=== PATIENT | female | born 1985 | race Caucasian/White ===

== ENCOUNTER → 2016-12-13 | Outpatient (CLI) | payer OTHER ==
--- NOTE | 2016-12-13 15:39 | NM ---
EXAMINATION TYPE: NM hepatobiliary w EF DATE OF EXAM: 12/13/2016 3:14 PM COMPARISON: NONE HISTORY: Epigastric pain TECHNIQUE: After the intravenous administration of 5.42 mCi Tc 99m Mebrofenin hepatobiliary scintigra phy is performed. Immediate images post injection. FINDINGS: There is satisfactory initial accumulation of tracer by the liver. The gallbladder is visualized wit hin 8 minutes. The small bowel activity is noted within 26 minutes. At one hour 8 ounces of oral en sure plus is given to mimic CCK and gallbladder ejection fraction is calculated at 71 %, in the buffy l range. Therefore there is no scintigraphic evidence of cystic or common bile duct obstruction to s uggest acute cholecystitis or gallbladder dyskinesia. IMPRESSION: Exam is within normal limits.
== END | disposition home or self-care (01) ==
LOC: RADNMMAIN 12:47
PROVIDERS: ATTEND Surgery
DX: R10.13 Epigastric pain (principal)
CPT/HCPCS: 78226; A9537

== ENCOUNTER 2017-04-08 20:00 | Emergency (ER) | payer OTHER ==
[2017-04-08 20:36] VITALS: BP 125/76; PULSE 90; RESP 20; TEMP 99.6
--- NOTE | 2017-04-08 21:00 | ED ---
Eye Problem HPI - General Chief complaint: Eye Problems Stated complaint: IHS/Eye Problem Time Seen by Provider: 04/08/17 20:43 Source: patient Mode of arrival: ambulatory Limitations: no limitations - History of Present Illness Initial comments: 31-year-old female presenting for left eye irritation. Patient states that she had a small amount of cleaning solution spray back into her left eye while she was working today. 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 She states she felt fine after this incident while at work. However when she got home after work she removed her contacts and then began to develop left eye irritation. She states she went to [facility] who evaluated her and placed numbing eyedrops in her eyes and performed fluorescein staining exam. She states they told her that she had no corneal abrasions or foreign bodies. However the recommended she go to the ED for pH testing. She denies any visual changes. She denies any pain with eye movement. She states her pain is improved after the numbing drops were applied. She denies any other chemical exposure. She denies any other complaints at this time. - Related Data Home Medications Medication Instructions Recorded Confirmed No Known Home Medications [No 04/08/17 04/08/17 Known Home Medications] Allergies Allergy/AdvReac Type Severity Reaction Status Date / Time No Known Allergies Allergy Verified 04/08/17 20:36 Review of Systems ROS Statement: Those systems with pertinent positive or pertinent negative responses have been documented in the HPI. ROS Other: All systems not noted in ROS Statement are negative. Past Medical History Past Medical History: No Reported History History of Any Multi-Drug Resistant Organisms: None Reported Past Surgical History: Section Past Anesthesia/Blood Transfusion Reactions: No Reported Reaction Past Psychological History: No Psychological Hx Reported Smoking Status: Never smoker Past Alcohol Use History: None Reported Past Drug Use History: None Reported - Past Family History Mother Family Medical History: No Reported History General Exam - General Exam Comments Initial Comments: General: Awake and Alert. No acute distress. Does not appear acutely ill. Eyes: SARY, EOM intact. No nystagmus. No scleral icterus. Left conjunctival injection. No discharge. No corneal clouding. HENT: Atraumatic, normocephalic. Mucous membranes moist. Trachea midline. Neck: The neck is supple, there is no tenderness or JVD. Cardiovascular: Regular rate and rhythm. No murmur, rub, or gallop is appreciated. Distal pulses intact. Respiratory: Lungs are clear to auscultation bilaterally. No wheezes, rales, rhonchi. No respiratory distress. Gastrointestinal: Soft, Nontender. No rebound or guarding. Non-distended. No masses or organomegaly noted. No CVA tenderness. Musculoskeletal: No tenderness. Normal ROM. No gross deformity. No strength deficits. Neurological: A&Ox3. CN II-XII grossly intact, There are no obvious motor or sensory deficits. Coordination appears grossly intact. Speech is normal. Skin: Skin is warm and dry and no rashes or lesions are noted. Psychiatric: Cooperative, appropriate mood & affect, normal judgment. Limitations: no limitations Course Vital Signs 04/08/17 20:33 Temperature 99.6 F Pulse Rate 90 Respiratory 20 Rate Blood Pressure 125/76 O2 Sat by Pulse 100 Oximetry Medical Decision Making - Medical Decision Making 31-year-old female presenting after chemical irritation of her left eye. Patient had cleaning solution backsplash in her eye earlier today. She states that she was fine during work but when she came home and took out her contacts she developed irritation of his eye. She denies any visual changes. Visual acuity testing intact bilaterally. She went [facility] who evaluated her and did a fluorescein staining after numbing eyedrops and stated they saw no corneal abrasions or foreign bodies. She was directed to come to the ER for pH test. I discussion with the patient given her small exposure and no worsening of symptoms and no visual changes she does not appear to require irrigations or pH testing at this time. Discussed no contact usage for several days until symptoms resolve. Discussed ophthalmology follow-up in the next few days and referral provided. Discussed concerning signs/symptoms for immediate return to the ED for emergent ophthalmology evaluation. Patient is agreeable plan and discharge home. Work note provided as patient wishes to go back to work stating she may return with no restrictions. Recommend she wear eye protection when handling chemicals. Disposition Clinical Impression: Exposure to chemical irritant, Irritation of left eye Disposition: HOME SELF-CARE Condition: Stable Instructions: [facility] [place] (ED) Additional Instructions: You may use lubricating eye drops for symptom relief. Please wear eye protection when working with chemicals. Please follow up with Ophthalmology in the next few days. Referrals: None,Stated [Primary Care Provider] - 1-2 days Everardo Tena MD [STAFF PHYSICIAN] - 1-2 days Time of Disposition: 21:00
== END 2017-04-08 21:07 | disposition home or self-care (01) ==
LOC: EC 20:00
DX: H57.9 Unspecified disorder of eye and adnexa (principal); Z77.098 Contact with and (suspected) exposure to other hazardous, chiefly nonmedicinal, chemicals
CPT/HCPCS: 99283

== ENCOUNTER 2017-08-20 19:22 | Emergency (ER) | payer OTHER ==
[2017-08-20] MEDS ORDERED: ONDANSETRON 4 MG/2 ML VIAL IVP STA (19:40)
[2017-08-20] MEDS ORDERED: SODIUM CHLORIDE 0.9% 1,000 ML IV STA (19:40)
[2017-08-20 20:07] LABS: Basophils # (A) 0.1 k/uL (0-0.2); Basophils % (A) 1 %; CH 31.1; CHCM 34.6; Eosinophils # (A) 0.2 k/uL (0-0.7); Eosinophils % (A) 2 %; HCT 38.9 % (34.0-46.0); HDW 2.29; HGB 13.1 gm/dL (11.4-16.0); Luc # (Auto) 0.16; Luc % (Auto) 2; Lymphocytes # (A) 2.7 k/uL (1.0-4.8); Lymphocytes % (A) 30 %; MCH 30.4 pg (25.0-35.0); MCHC 33.7 g/dL (31.0-37.0); MCV 90.3 fL (80.0-100.0); Mean Platelet Volume 7.9; Monocytes # (A) 0.4 k/uL (0-1.0); Monocytes % (A) 5 %; Neutrophils # (A) 5.5 k/uL (1.3-7.7); Neutrophils % (A) 61 %; RBC 4.31 m/uL (3.80-5.40); RDW 13.7 % (11.5-15.5); WBC 9.1 k/uL (3.8-10.6); WBC (Perox) 9.75
[2017-08-20 20:12] LABS: Appearance,Urine Clear (Clear); Bilirubin,Urine Negative (Negative); Glucose,Urine (UA) Negative (Negative); Ketones,Urine Negative (Negative); Leukocyte Esterase,Urine Negative (Negative); Nitrite,Urine Negative (Negative); Protein,Urine Negative (Negative); Specific Gravity,Urine 1.003 (1.001-1.035); UA Billing (MACRO vs. MICRO) CHEM; Urobilinogen,Urine <2.0 mg/dL (<2.0)
[2017-08-20] MEDS ORDERED: RX INFO: IV CONTRAST WAS GIVEN 1 EACH MISC MISCELLANE PRN (20:14)
[2017-08-20 20:21] LABS: ALT 27 U/L (9-52); AST 17 U/L (14-36); Alkaline Phosphatase 42 U/L (38-126); Amylase <30 U/L (30-110); Anion Gap 10 mmol/L; Blood Urea Nitrogen 10 mg/dL (7-17); Calcium 9.3 mg/dL (8.4-10.2); Carbon Dioxide 26 mmol/L (22-30); Chloride 103 mmol/L (98-107); Glucose 96 mg/dL (74-99); Non-African American GFR(MDRD) >60 (>60 ml/min/1.73 sqM); Potassium 3.4 mmol/L (3.5-5.1); Sodium 139 mmol/L (137-145); Total Bilirubin 0.4 mg/dL (0.2-1.3)
[2017-08-20] MEDS ORDERED: KETOROLAC 30 MG/ML 1 ML VIAL IVP STA (20:56)
--- NOTE | 2017-08-20 20:59 | ED ---
Abdominal Pain HPI - General Chief Complaint: Abdominal Pain Stated Complaint: Abd Pain Time Seen by Provider: 08/20/17 19:31 Source: patient, RN notes reviewed Mode of arrival: ambulatory Limitations: no limitations - History of Present Illness Initial Comments: This a 32-year-old female presents emergency Department chief complaint of right -sided abdominal pain. Patient states that the pain has A 5 his last 24 hours. She states that she has had on and off pain for last year once was told that it was her gallbladder though she had a normal HIDA scan centimeters surgeon. Patient admits to some nausea denies any diarrhea or constipation. She states she has had some urinary frequency but no dysuria and no hematuria. Patient had prior section and has no history of kidney stone, GI disorders. Patient states nothing is making her pain feel better or worse at this time. - Related Data Previous Rx's Medication Instructions Recorded Acetaminophen-Codeine 300-30mg 1 tab PO Q4H PRN #20 tablet 08/20/17 [Tylenol #3] Ibuprofen [Motrin] 600 mg PO Q8HR PRN #30 tab 08/20/17 Ondansetron Odt [Zofran Odt] 4 mg PO Q8HR PRN #10 tab 08/20/17 Allergies Allergy/AdvReac Type Severity Reaction Status Date / Time No Known Allergies Allergy Verified 08/20/17 19:59 Review of Systems ROS Statement: Those systems with pertinent positive or pertinent negative responses have been documented in the HPI. ROS Other: All systems not noted in ROS Statement are negative. Past Medical History Past Medical History: No Reported History History of Any Multi-Drug Resistant Organisms: None Reported Past Surgical History: Section Past Anesthesia/Blood Transfusion Reactions: No Reported Reaction Past Psychological History: No Psychological Hx Reported Smoking Status: Current every day smoker Past Alcohol Use History: Rare Past Drug Use History: None Reported - Past Family History Mother Family Medical History: No Reported History General Exam Limitations: no limitations General appearance: alert, in no apparent distress Respiratory exam: Present: normal lung sounds bilaterally. Absent: respiratory distress, wheezes, rales, rhonchi, stridor Cardiovascular Exam: Present: regular rate, normal rhythm, normal heart sounds. Absent: systolic murmur, diastolic murmur, rubs, gallop, clicks GI/Abdominal exam: Present: soft, tenderness (Moderate right-sided abdominal tenderness), normal bowel sounds. Absent: distended, guarding, rebound, rigid Back exam: Absent: CVA tenderness (R), CVA tenderness (L) Skin exam: Present: warm, dry, intact, normal color. Absent: rash Course Vital Signs 08/20/17 08/20/17 19:28 21:05 Temperature 97.1 F L Pulse Rate 96 65 Respiratory 18 20 Rate Blood Pressure 127/78 113/76 O2 Sat by Pulse 100 100 Oximetry Medical Decision Making - Medical Decision Making 32-year-old female presented emergency department for right-sided abdominal pain. Patient's laboratory, CT ultrasound does not show any acute abnormality. Patient states she does feel improved at this time. I did advise the patient that she needs follow-up with her PCP and GI physician. Return parameters were discussed. - Lab Data Result diagrams: 08/20/17 15:05 08/20/17 15:05 Lab Results 08/20/17 08/20/17 08/20/17 Range/Units 15:05 15:05 15:05 WBC 9.1 (3.8-10.6) k/uL RBC 4.31 (3.80-5.40) m/uL Hgb 13.1 (11.4-16.0) gm/dL Hct 38.9 (34.0-46.0) % MCV 90.3 (80.0-100.0) fL MCH 30.4 (25.0-35.0) pg MCHC 33.7 (31.0-37.0) g/dL RDW 13.7 (11.5-15.5) % Plt Count 281 (150-450) k/uL Neutrophils % 61 % Lymphocytes % 30 % Monocytes % 5 % Eosinophils % 2 % Basophils % 1 % Neutrophils # 5.5 (1.3-7.7) k/uL Lymphocytes # 2.7 (1.0-4.8) k/uL Monocytes # 0.4 (0-1.0) k/uL Eosinophils # 0.2 (0-0.7) k/uL Basophils # 0.1 (0-0.2) k/uL Sodium 139 (137-145) mmol/L Potassium 3.4 L (3.5-5.1) mmol/L Chloride 103 (98-107) mmol/L Carbon Dioxide 26 (22-30) mmol/L Anion Gap 10 mmol/L BUN 10 (7-17) mg/dL Creatinine 0.62 (0.52-1.04) mg/dL Est GFR (MDRD) Af Amer >60 (>60 ml/min/1.73 sqM) Est GFR (MDRD) Non-Af >60 (>60 ml/min/1.73 sqM) Glucose 96 (74-99) mg/dL Calcium 9.3 (8.4-10.2) mg/dL Total Bilirubin 0.4 (0.2-1.3) mg/dL AST 17 (14-36) U/L ALT 27 (9-52) U/L Alkaline Phosphatase 42 (38-126) U/L Total Protein 7.0 (6.3-8.2) g/dL Albumin 4.4 (3.5-5.0) g/dL Amylase <30 L (30-110) U/L Lipase 45 (23-300) U/L Urine Color Urine Appearance (Clear) Urine pH (5.0-8.0) Ur Specific [place] (1.001-1.035) Urine Protein (Negative) Urine Glucose (UA) (Negative) Urine Ketones (Negative) Urine Blood (Negative) Urine Nitrite (Negative) Urine Bilirubin (Negative) Urine Urobilinogen (<2.0) mg/dL Ur Leukocyte Esterase (Negative) Urine HCG, Qual Not Detected (Not Detectd) 08/20/17 Range/Units 15:05 WBC (3.8-10.6) k/uL RBC (3.80-5.40) m/uL Hgb (11.4-16.0) gm/dL Hct (34.0-46.0) % MCV (80.0-100.0) fL MCH (25.0-35.0) pg MCHC (31.0-37.0) g/dL RDW (11.5-15.5) % Plt Count (150-450) k/uL Neutrophils % % Lymphocytes % % Monocytes % % Eosinophils % % Basophils % % Neutrophils # (1.3-7.7) k/uL Lymphocytes # (1.0-4.8) k/uL Monocytes # (0-1.0) k/uL Eosinophils # (0-0.7) k/uL Basophils # (0-0.2) k/uL Sodium (137-145) mmol/L Potassium (3.5-5.1) mmol/L Chloride (98-107) mmol/L Carbon Dioxide (22-30) mmol/L Anion Gap mmol/L BUN (7-17) mg/dL Creatinine (0.52-1.04) mg/dL Est GFR (MDRD) Af Amer (>60 ml/min/1.73 sqM) Est GFR (MDRD) Non-Af (>60 ml/min/1.73 sqM) Glucose (74-99) mg/dL Calcium (8.4-10.2) mg/dL Total Bilirubin (0.2-1.3) mg/dL AST (14-36) U/L ALT (9-52) U/L Alkaline Phosphatase (38-126) U/L Total Protein (6.3-8.2) g/dL Albumin (3.5-5.0) g/dL Amylase (30-110) U/L Lipase (23-300) U/L Urine Color Light Yellow Urine Appearance Clear (Clear) Urine pH 6.0 (5.0-8.0) Ur Specific [place] 1.003 (1.001-1.035) Urine Protein Negative (Negative) Urine Glucose (UA) Negative (Negative) Urine Ketones Negative (Negative) Urine Blood Negative (Negative) Urine Nitrite Negative (Negative) Urine Bilirubin Negative (Negative) Urine Urobilinogen <2.0 (<2.0) mg/dL Ur Leukocyte Esterase Negative (Negative) Urine HCG, Qual (Not Detectd) Disposition Clinical Impression: Abdominal pain Disposition: HOME SELF-CARE Condition: Stable Instructions: Abdominal Pain (ED) Additional Instructions: Please return to the Emergency Department if symptoms worsen or any other concerns. Prescriptions: Acetaminophen-Codeine 300-30mg [Tylenol #3] 1 tab PO Q4H PRN #20 tablet PRN Reason: pain Ibuprofen [Motrin] 600 mg PO Q8HR PRN #30 tab PRN Reason: Pain Ondansetron Odt [Zofran Odt] 4 mg PO Q8HR PRN #10 tab PRN Reason: Nausea Referrals: None,Stated [Primary Care Provider] - 1-2 days Celsa Walter MD [STAFF PHYSICIAN] - 1-2 days Time of Disposition: 23:17
--- NOTE | 2017-08-20 21:03 | CT ---
EXAMINATION TYPE: CT abdomen pelvis w con DATE OF EXAM: 08/20/2017 COMPARISON: NONE HISTORY: Right sided abdominal pain x 1 year. Worse last [address] DLP: 366.20 mGycm CONTRAST: CT scan of the abdomen and pelvis is performed without Oral Contrast and with IV Contrast, patient in jected with 100 mL of Omnipaque 300. FINDINGS: LUNG BASES-: No visible nodule. No infiltrate. LIVER/GB: No calcified gallstones. No space occupying hepatic lesion. Biliary tree is of normal ca liber. PANCREAS: No inflammation. No distinct mass. SPLEEN: No splenic enlargement. No lesion seen. ADRENALS: No nodule. No thickening. KIDNEYS/BLADDER: No hydronephrosis. No nephrolithiasis. No disctinct renal mass. Urinary bladder g rossly unremarkable. BOWEL: Normal appendix. Normal bowel caliber. No inflammation. GENITAL ORGANS: No gross abnormality. LYMPH NODES: No greater than 1cm abdominal or pelvic lymph nodes are appreciated. AORTA: No significant abnormality. OSSEOUS STRUCTURES: No significant abnormality is seen. OTHER: No significant additional abnormality is seen. IMPRESSION: 1. No acute intra-abdominal process identified.
--- NOTE | 2017-08-20 23:11 | US ---
EXAM: US Pelvis, Transvaginal CLINICAL HISTORY: Reason: Pain TECHNIQUE: Real-time transvaginal pelvic ultrasound (complete) with image documentation. Transvaginal imaging was used for better evaluation of the endometrium and adnexa. COMPARISON: No relevant prior studies available. FINDINGS: Uterus/cervix: Uterus measures 6.3 x 4.3 x 5.2 cm Endometrial thickness is within normal limits, 9 mm. Right ovary: Right ovary not visualized. No adnexal mass or cyst. Left ovary: Left Ovary measures 3.0 x 2.0 x 2.3 cm intraovarian flow is present. No adnexal mass or cyst. Free fluid: No free fluid. IMPRESSION: 1. Uterus and endometrium are normal for age. 2. Left ovary is normal. 3. Nonvisualization of the right ovary. No adnexal mass or cyst. MTDD
[2017-08-20 23:37] VITALS: BP 102/64; PULSE 64; RESP 18; TEMP 97.2
== END 2017-08-20 23:37 | disposition home or self-care (01) ==
LOC: EC 19:22
DX: R10.9 Unspecified abdominal pain (principal); R11.0 Nausea; R35.0 Frequency of micturition; F17.200 Nicotine dependence, unspecified, uncomplicated; Z98.890 Other specified postprocedural states; Z53.9 Procedure and treatment not carried out, unspecified reason
CPT/HCPCS: 96361 ×4; 96374 ×2; 96375 ×2; 99284 ×2; 36415; 80053; 82150; 83690; 85025; 81003; 81025; 93976; 76830; 74177; J2405; J1885; Q9967; 76856

== ENCOUNTER → 2017-10-17 | Outpatient (CLI) | payer OTHER ==
--- NOTE | 2017-10-17 11:08 | FL ---
EXAMINATION TYPE: FL UGI w small bowel DATE OF EXAM: 10/17/2017 COMPARISON: NONE HISTORY: Abdomen pain diarrhea irritable bowel symptoms TECHNIQUE: A double air contrast UGI study is performed with small bowel follow through. 1 minute 39 seconds of fluoroscopy time was provided. 29 images are obtained. FINDINGS: [employer] film: Fecal debris is within the colon on the initial live in caregiver film. [employer] film is othe rwise noncontributory Upper GI: Double air-contrast technique is utilized to evaluate the upper gastrointestinal tract. The esophagus dilates to normal caliber has normal contour to the gastroesophageal junction. Gastroes ophageal junction opens to normal caliber. No intraluminal or extramural defects are evident. No refl ux was evident during the exam. There is complete stripping of the esophageal bolus in the horizontal drinking position. Fundus body and antrum the stomach are well visualized. No intraluminal or extramural defects are dieog dent. There is some hesitancy of contrast passing through the stomach into the duodenum. Duodenal fold hype rtrophy is evident. Duodenum is in the normal position. Small bowel follow-through: Following additional oral administration of contrast head radiograph was obtained. There is rapid transit from the stomach to the colon in approximately 20 minutes. Real-time fluoroscopy was performed. Loops of bowel appear freely mobile. There was tenderness over the mid pe lvic region with compression. Some linear stranding is within the terminal ileum. The cecum appears decompressed with more normal appearance of the distal ascending colon. Consider ad ditional evaluation of the cecum with colonoscopy. Inflammatory change and spasm are more likely than neoplasm. IMPRESSION: 1. Inflammatory changes are likely present at the duodenum and terminal ileum and possibly within the cecum. Consider Crohn's disease within the differential. Differential diagnosis could include acute duodenitis and ileitis. 2. Spasm at the cecum. Inflammatory changes should be considered. Neoplasm while unlikely, should be excluded.
== END | disposition home or self-care (01) ==
LOC: RADFLMAIN 08:54
PROVIDERS: ATTEND Internal Medicine Gastroenterology
DX: K58.9 Irritable bowel syndrome, unspecified (principal)
CPT/HCPCS: 74245

== ENCOUNTER → 2020-09-02 | Outpatient (CLI) | payer OTHER ==
--- NOTE | 2020-09-02 08:23 | US ---
EXAMINATION TYPE: US abdomen complete DATE OF EXAM: 09/02/2020 COMPARISON: CLINICAL HISTORY: R10.11 RUQ ABDOMINAL PAIN. RUQ pain. NPO. EXAM MEASUREMENTS: Liver Length: 16.5 cm Gallbladder Wall: 0.2 cm CBD: 0.4 cm Spleen: 11.4 cm Right Kidney: 9.7 x 4.1 x 3.3 cm Left Kidney: 10.4 x 4.5 x 5.4 cm Pancreas: wnl Liver: wnl Gallbladder: wnl Evidence for sonographic Thomas's sign: neg CBD: wnl Spleen: wnl Right Kidney: No hydronephrosis or masses seen Left Kidney: No hydronephrosis or masses seen Upper IVC: wnl Abd Aorta: No AAA visualized The liver is homogenous. The intrahepatic portion of the IVC and proximal abdominal aorta are within normal limits. There is no evidence of cholelithiasis. Common bile duct is unremarkable. The visu alized portions of the pancreas are homogenous. The spleen is unremarkable. Kidneys are symmetric a nd free of hydronephrosis. No renal lesions are seen. IMPRESSION: No distinct abnormality seen.
== END | disposition home or self-care (01) ==
LOC: RADUSWWP 07:26
PROVIDERS: ATTEND Internal Medicine
DX: R10.11 Right upper quadrant pain (principal)
CPT/HCPCS: 76700

== ENCOUNTER → 2022-08-27 | Outpatient (CLI) | payer BC, OTHER ==
--- NOTE | 2022-08-27 10:23 | MM ---
Reason for Exam: Clinical finding. Patient History: Menarche at age 15. First Full-Term at age 21. Premenopausal. Hormonal Contraceptives, from age 18 until age 27. Last menstrual period: 08/13/2022 Risk Values: Glenis 5 year model risk: 0.2%. NCI Lifetime model risk: 7.5%. Tissue Density: The breast tissue is heterogeneously dense. This may lower the sensitivity of mammography. Findings: Analyzed By CAD. Palpable marker placed along the 11:00 and axillary position of the right breast. Superior asymmetric density right MLO view does not persist on spot 3-D images. Otherwise, no discrete abnormality is seen. Overall Assessment: Incomplete: need additional imaging evaluation, BI-RAD 0 Management: Diagnostic Breast Ultrasound of the right breast. Electronically signed and approved by: Michael Arenas M.D. Radiologist
--- NOTE | 2022-08-27 10:33 | USB ---
Reason for Exam: Clinical finding. Patient History: Menarche at age 15. First Full-Term at age 21. Premenopausal. Hormonal Contraceptives, from age 18 until age 27. Risk Values: Glenis 5 year model risk: 0.2%. NCI Lifetime model risk: 7.5%. Technique: Method: Targeted. Findings: The upper outer quadrant of the right breast, the axilla of the right breast and the retroareolar of the right breast were scanned. Targeted ultrasound upper outer quadrant 9:00 to 12:00 including the subareolar region and axilla. Particular attention to the palpable 12:00 and axillary regions indicated by the patient. Scattered dense tissues are present. No solid or cystic lesion. No axillary lymphadenopathy.. Overall Assessment: Negative, BI-RAD 1 Management: Screening Mammogram of both breasts at age 42. 1. Patient should continue monthly self breast exams. 2. Further clinical management of any suspicious palpable areas. If any persistent or enlarging palpable area is encountered, the patient can be rescanned. Electronically signed and approved by: Michael Arenas M.D. Radiologist
== END | disposition home or self-care (01) ==
LOC: RADMAMWWP 08:39
PROVIDERS: ATTEND Internal Medicine
DX: N63.10 Unspecified lump in the right breast, unspecified quadrant (principal); R92.8 Other abnormal and inconclusive findings on diagnostic imaging of breast
CPT/HCPCS: 77062; 77066

== ENCOUNTER 2022-10-26 14:00 | Inpatient (IN) | payer BC, OTHER ==
[2022-10-26] MEDS ORDERED: LORazepam 2 MG/ML INJ IV STA ×2 (14:06→15:12)
[2022-10-26] MEDS ORDERED: SODIUM CHLORIDE 0.9% 1,000 ML IV ONE (14:06)
--- NOTE | 2022-10-26 14:12 | ED ---
General Adult HPI - General Stated complaint: AMS Time Seen by Provider: 10/26/22 14:05 Source: patient, EMS Mode of arrival: EMS Limitations: altered mental status - History of Present Illness Initial comments: Patient is a pleasant 37-year-old female presenting to the emergency department with concern with change in mental status. Patient arrives by EMS. Patient reportedly was at work and became weak and then less responsive. Patient is also had some reported tremors. EMS reports that patient is distractible and able to answer somewhat yes and no with head movements. Patient also stops tremoring when distracted. Patient presents with similar presentation upon arri jane to the emergency department. Patient is not verbal. Patient does admit to being under stress recently. Patient denies history of similar symptoms previously. - Related Data Previous Rx's Medication Instructions Recorded Acetaminophen-Codeine 300-30mg 1 tab PO Q4H PRN #20 tablet 08/20/17 [Tylenol #3] Ibuprofen [Motrin] 600 mg PO Q8HR PRN #30 tab 08/20/17 Ondansetron Odt [Zofran Odt] 4 mg PO Q8HR PRN #10 tab 08/20/17 Allergies Allergy/AdvReac Type Severity Reaction Status Date / Time No Known Allergies Allergy Verified 08/20/17 19:59 Review of Systems ROS Statement: Those systems with pertinent positive or pertinent negative responses have been documented in the HPI. ROS Other: All systems not noted in ROS Statement are negative. Limitations: ROS unobtainable due to patients medical condition Past Medical History Past Medical History: No Reported History History of Any Multi-Drug Resistant Organisms: None Reported Past Surgical History: Section Past Anesthesia/Blood Transfusion Reactions: No Reported Reaction Past Psychological History: No Psychological Hx Reported Past Alcohol Use History: Rare Past Drug Use History: None Reported - Past Family History Mother Family Medical History: No Reported History General Exam Limitations: altered mental status General appearance: alert, other (Patient does have mild tremors. Patient is distractible unable to open her eyes and follow simple commands at times) Head exam: Present: atraumatic, normocephalic Eye exam: Present: normal appearance, PERRL, EOMI ENT exam: Present: normal oropharynx Neck exam: Present: normal inspection. Absent: tenderness, meningismus Respiratory exam: Present: normal lung sounds bilaterally Cardiovascular Exam: Present: regular rate, normal rhythm Expanded Peripheral pulses: 2+: Radial (R), Radial (L), Dorsalis Pedis (R), Dorsalis Pedis (L) GI/Abdominal exam: Present: soft. Absent: tenderness Extremities exam: Present: normal inspection Neurological exam: Present: other (Resting tremor that patient is able to overcome and distracted. Patient is nonverbal but for the most part will answer yes and no with shaking her head. Patient follows some commands. Limited exam. Patient does move all extremities. No flaccid paralysis) Psychiatric exam: Present: other (Nonverbal. Patient admits to having increased stress) Skin exam: Present: normal color Course Vital Signs 10/26/22 10/26/22 14:06 15:31 Temperature 98.8 F Pulse Rate 105 H 98 Respiratory 18 18 Rate Blood Pressure 131/91 128/74 O2 Sat by Pulse 99 99 Oximetry EKG Findings - EKG Results: EKG: interpreted by ERMD (AL 96.), sinus rhythm, normal axis, normal QRS, normal ST/T EKG shows: tachycardia Medical Decision Making - Medical Decision Making Patient reevaluated and is somewhat improved. Patient no longer having tremors. Patient will answer her name however further speech is still limited. There is concern for anxiety reaction however patient has not returned to baseline. Patient will need further observation and if does not further improved may need further testing or evaluation or neurology evaluation. Case was discussed with Dr. Trammell, who will admit covering for hospital call. - Lab Data Result diagrams: 10/26/22 14:13 10/26/22 14:13 Lab Results 10/26/22 10/26/22 10/26/22 Range/Units 14:13 14:13 14:13 WBC 9.5 (3.8-10.6) k/uL RBC 4.31 (3.80-5.40) m/uL Hgb 12.8 (11.4-16.0) gm/dL Hct 37.4 (34.0-46.0) % MCV 86.8 (80.0-100.0) fL MCH 29.6 (25.0-35.0) pg MCHC 34.1 (31.0-37.0) g/dL RDW 12.7 (11.5-15.5) % Plt Count 373 (150-450) k/uL MPV 7.4 Neutrophils % 58 % Lymphocytes % 34 % Monocytes % 6 % Eosinophils % 1 % Basophils % 1 % Neutrophils # 5.5 (1.3-7.7) k/uL Lymphocytes # 3.2 (1.0-4.8) k/uL Monocytes # 0.5 (0-1.0) k/uL Eosinophils # 0.1 (0-0.7) k/uL Basophils # 0.1 (0-0.2) k/uL PT 10.4 (9.0-12.0) sec INR 1.0 (<1.2) APTT 22.3 (22.0-30.0) sec Sodium 136 L (137-145) mmol/L Potassium 3.1 L (3.5-5.1) mmol/L Chloride 103 (98-107) mmol/L Carbon Dioxide 23 (22-30) mmol/L Anion Gap 10 mmol/L BUN 10 (7-17) mg/dL Creatinine 0.58 (0.52-1.04) mg/dL Est GFR (CKD-EPI)AfAm >90 (>60 ml/min/1.73 sqM) Est GFR (CKD-EPI)NonAf >90 (>60 ml/min/1.73 sqM) Glucose 108 H (74-99) mg/dL Calcium 8.4 (8.4-10.2) mg/dL Magnesium 1.7 (1.6-2.3) mg/dL Total Bilirubin 0.4 (0.2-1.3) mg/dL AST 18 (14-36) U/L ALT 15 (4-34) U/L Alkaline Phosphatase 69 (38-126) U/L Troponin I (0.000-0.034) ng/mL Total Protein 6.4 (6.3-8.2) g/dL Albumin 4.3 (3.5-5.0) g/dL Serum Alcohol <10 mg/dL 10/26/22 Range/Units 14:13 WBC (3.8-10.6) k/uL RBC (3.80-5.40) m/uL Hgb (11.4-16.0) gm/dL Hct (34.0-46.0) % MCV (80.0-100.0) fL MCH (25.0-35.0) pg MCHC (31.0-37.0) g/dL RDW (11.5-15.5) % Plt Count (150-450) k/uL MPV Neutrophils % % Lymphocytes % % Monocytes % % Eosinophils % % Basophils % % Neutrophils # (1.3-7.7) k/uL Lymphocytes # (1.0-4.8) k/uL Monocytes # (0-1.0) k/uL Eosinophils # (0-0.7) k/uL Basophils # (0-0.2) k/uL PT (9.0-12.0) sec INR (<1.2) APTT (22.0-30.0) sec Sodium (137-145) mmol/L Potassium (3.5-5.1) mmol/L Chloride (98-107) mmol/L Carbon Dioxide (22-30) mmol/L Anion Gap mmol/L BUN (7-17) mg/dL Creatinine (0.52-1.04) mg/dL Est GFR (CKD-EPI)AfAm (>60 ml/min/1.73 sqM) Est GFR (CKD-EPI)NonAf (>60 ml/min/1.73 sqM) Glucose (74-99) mg/dL Calcium (8.4-10.2) mg/dL Magnesium (1.6-2.3) mg/dL Total Bilirubin (0.2-1.3) mg/dL AST (14-36) U/L ALT (4-34) U/L Alkaline Phosphatase (38-126) U/L Troponin I <0.012 (0.000-0.034) ng/mL Total Protein (6.3-8.2) g/dL Albumin (3.5-5.0) g/dL Serum Alcohol mg/dL - Radiology Data Radiology results: report reviewed (Computed tomography scan of the brain reveals no acute process) Interpreted by me: Chest x-ray shows no acute process. Disposition Clinical Impression: Altered mental status Disposition: ADMITTED IP TO THIS HOSP Is patient prescribed a controlled substance at d/c from ED?: No Referrals: Carol Brown [Primary Care Provider] - 1-2 days Time of Disposition: 16:19
[2022-10-26 14:24] LABS: Basophils # (A) 0.1 k/uL (0-0.2); Basophils % (A) 1 %; Eosinophils # (A) 0.1 k/uL (0-0.7); Eosinophils % (A) 1 %; HCT 37.4 % (34.0-46.0); HGB 12.8 gm/dL (11.4-16.0); Lymphocytes # (A) 3.2 k/uL (1.0-4.8); Lymphocytes % (A) 34 %; MCH 29.6 pg (25.0-35.0); MCHC 34.1 g/dL (31.0-37.0); MCV 86.8 fL (80.0-100.0); Mean Platelet Volume 7.4; Monocytes # (A) 0.5 k/uL (0-1.0); Monocytes % (A) 6 %; Neutrophils # (A) 5.5 k/uL (1.3-7.7); Neutrophils % (A) 58 %; Platelet Count 373 k/uL (150-450); RBC 4.31 m/uL (3.80-5.40); RDW 12.7 % (11.5-15.5); WBC 9.5 k/uL (3.8-10.6)
[2022-10-26 14:34] LABS: ALT 15 U/L (4-34); AST 18 U/L (14-36); African American GFR (CKD) >90 (>60 ml/min/1.73 sqM); Albumin 4.3 g/dL (3.5-5.0); Alcohol <10 mg/dL; Alkaline Phosphatase 69 U/L (38-126); Anion Gap 10 mmol/L; Blood Urea Nitrogen 10 mg/dL (7-17); Calcium 8.4 mg/dL (8.4-10.2); Carbon Dioxide 23 mmol/L (22-30); Chloride 103 mmol/L (98-107); Glucose 108 mg/dL (74-99); Magnesium 1.7 mg/dL (1.6-2.3); Non-African American GFR(CKD) >90 (>60 ml/min/1.73 sqM); Potassium 3.1 mmol/L (3.5-5.1); Sodium 136 mmol/L (137-145); Total Bilirubin 0.4 mg/dL (0.2-1.3); Total Protein 6.4 g/dL (6.3-8.2)
[2022-10-26 14:37] LABS: Partial Thromboplastin Time 22.3 sec (22.0-30.0); Prothrombin Time 10.4 sec (9.0-12.0)
--- NOTE | 2022-10-26 15:03 | XR ---
EXAMINATION TYPE: XR chest 2V DATE OF EXAM: 10/26/2022 2:53 PM COMPARISON: None TECHNIQUE: XR chest 2V Frontal and lateral views of the chest. CLINICAL INDICATION:Female, 37 years old with history of altered mental status; FINDINGS: Lungs/Pleura: Low lung volumes are present. There is no evidence of pleural effusion, focal consolida tion, or pneumothorax. Pulmonary vascularity: Unremarkable. Heart/mediastinum: Cardiomediastinal silhouette is unremarkable. Musculoskeletal: No acute osseous pathology. IMPRESSION: No acute cardiopulmonary disease/process.
--- NOTE | 2022-10-26 15:04 | CT ---
EXAMINATION TYPE: CT brain wo con CT DLP: 1092.4 mGycm, Automated exposure control for dose reduction was used. DATE OF EXAM: 10/26/2022 2:49 PM COMPARISON: 05/24/2011. CLINICAL INDICATION:Female, 37 years old with history of Altered mental status, Seizure. TECHNIQUE: Brain: Axial CT images of the brain were obtained with coronal and sagittal reformats created and rev iewed. Contrast used: None. Oral contrast used: None. FINDINGS: Brain: Extra-axial spaces: No abnormal extra-axial fluid collections. Ventricular system: Within normal limits Cerebral parenchyma: No acute intraparenchymal hemorrhage or mass effect. The agustin-white junction is well differentiated. Cerebellum: Unremarkable. Mass effect: No evidence of midline shift. Intracranial vasculature: unremarkable Soft tissues: Normal. Calvarium/osseous structures: No depressed skull fracture. Paranasal sinuses and mastoid air cells: Mild scattered paranasal sinus disease. Visualized orbits: Orbital contents are intact. IMPRESSION: No acute intracranial process.
[2022-10-26] MEDS ORDERED: NALOXONE 0.4 MG/ML 1 ML VIAL IV PRN (16:20)
[2022-10-26] MEDS ORDERED: POTASSIUM BICARBONATE/CIT AC 20 MEQ TABLET.EFF PO ONE (16:21)
--- NOTE | 2022-10-26 17:39 | P.HPIM ---
History of Present Illness H&P Date: 10/26/22 Patient is a 37-year-old female with no known past medical history who presented to the ER via EMS from work. Per EMS patient had some difficulty grabbing her pen and then had a syncopal episode. After waking she was unable to speak. In the ER she underwent an extensive evaluation. On arrival her heart rate was 105 with the remainder of her vital signs were within normal limits. Initial laboratory analysis was remarkable for potassium of 3.1. CT head showed no acute process. Patient seen and examined at bedside. She is lethargic but awakes to voice. She is slow to respond and appears to have difficulty forming words. She is able to tell me that she has a headache. She is unable to what occurred today. She is alert to person, place, and year. She reports that hand positive review of systems including chest pain, shortness breath, nausea, vomiting, difficulty uri nating. She does follow commands. She has some difficulty pronouncing her name. She is able to tell me that she takes Lamictal for mood and that she takes Imitrex for migraine headaches. She denies taking any drugs prior to the incident today. Significant other and father are at bedside. They report that she was diagnosed with neuropathy and had bilateral shoulder injections at Dr. Paredes's office approximately one week ago. She is due to have bilateral hip injections. They're unsure why she has neuropathy. She does also have a history of migraine headaches as well as depression and anxiety. She does see a psychiatrist. She has no history of a seizure disorder. However her son was recently diagnosed with possible seizure disorder. 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 Vital signs reviewed General: nontoxic, no distress, appears at stated age Derm: warm, dry Head: atraumatic, normocephalic, symmetric Eyes: Enlarged pupils, no lid lag, anicteric sclera, pupils equal round reactive to light ENT: Nose and ears atraumatic, no thrush, no pharyngeal erythema Neck: No thyromegaly, no cervical lymphadenopathy, trachea midline, supple Mouth: no lip lesion, mucus membranes moist, no signs of tongue biting Cardiovascular: S1S2 reg, no murmur, positive posterior tibial pulse bilateral, no edema, capillary refill less than 2 seconds Lungs: clear to auscultation bilateral, no rhonchi, no rales, no wheeze, no accessory muscle use Abdominal: soft, nontender to palpation, no guarding, no appreciable organomegaly, normal bowel sounds Ext: no gross muscle atrophy, muscle strength 5 out of 5 in all 4 extremities, no contractures Neuro: Pupils equal round reactive to light but mydriasis, uvula elevation in his equal, patient has difficulty sticking out tongue but there is no deviation, she is slow to form words, 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 However when you lift her hand above her head and let it go she slowly lowers at the bedside. She is able to lift both feet off of the bed bilaterally, light touch intact in all 4 extremities and bilateral face, slowed movements Psych: Lethargic but oriented, blunted affect Assessment/Plan: Episode of unresponsiveness-seizure versus syncope versus psychologic reaction -Seizure precautions -EEG -Neurology consultation -Consider MRI brain. Patient reports that she had one recently at Dr. Paredes's office -Echocardiogram -Telemetry -Await urine drug screen Hypokalemia - replace and recheck Migraine headaches -As needed Imitrex Neuropathy -Outpatient follow-up Depression and anxiety -Resume Effexor, Lamictal, and hydroxyzine The patient is admitted with an anticipated less than 2 midnight stay for evaluation of altered mentation. Surrogate decision-maker: Father DVT prophylaxis: SCDs Discussed with: Patient, family, ED provider, nursing Anticipated discharge date: 1 To [address]: Home A total of 65 minutes was spent on the care of this complex patient more than 50% of the time was spent in counseling and care coordination. Past Medical History Past Medical History: No Reported History History of Any Multi-Drug Resistant Organisms: None Reported Past Surgical History: Section Past Anesthesia/Blood Transfusion Reactions: No Reported Reaction Past Psychological History: No Psychological Hx Reported Past Alcohol Use History: Rare Past Drug Use History: None Reported - Past Family History Mother Family Medical History: No Reported History Medications and Allergies Home Medications Medication Instructions Recorded Confirmed Type Atomoxetine HCl 25 mg PO BID 10/26/22 10/26/22 History Ferrous Sulfate [Slow Release Iron] 140 mg PO DAILY 10/26/22 10/26/22 History SUMAtriptan succinate [Imitrex] 25 mg PO BID PRN 10/26/22 10/26/22 History Venlafaxine HCl [Effexor XR] 150 mg PO DAILY 10/26/22 10/26/22 History hydrOXYzine HCL [Atarax] 10 mg PO TID PRN 10/26/22 10/26/22 History lamoTRIgine 200 mg PO HS 10/26/22 10/26/22 History lamoTRIgine [LaMICtal] 50 mg PO HS 10/26/22 10/26/22 History Allergies Allergy/AdvReac Type Severity Reaction Status Date / Time No Known Allergies Allergy Verified 10/26/22 17:18 Physical Exam Osteopathic Statement: *. No significant issues noted on an osteopathic structural exam other than those noted in the History and Physical/Consult. Vitals: Vital Signs Temp Pulse Resp BP Pulse Ox 10/26/22 15:31 98 18 128/74 99 10/26/22 14:06 98.8 F 105 H 18 131/91 99 Intake and Output 10/26/22 10/26/22 10/26/22 06:59 14:59 22:59 Other: Weight 70.307 kg Results CBC & Chem 7: 10/26/22 14:13 10/26/22 14:13 Labs: Abnormal Lab Results - Last 24 Hours (Table) 10/26/22 Range/Units 14:13 Sodium 136 L (137-145) mmol/L Potassium 3.1 L (3.5-5.1) mmol/L Glucose 108 H (74-99) mg/dL
[2022-10-26] MEDS ORDERED: bisacodyL 5 MG TABLET.DR PO PRN (18:57)
[2022-10-26] MEDS ORDERED: ONDANSETRON 4 MG/2 ML VIAL IVP PRN (18:57)
[2022-10-26] MEDS ORDERED: MELATONIN 3 MG TABLET PO PRN (18:57)
[2022-10-26] MEDS: lamoTRIgine 100 MG TAB PO SCH (20:33)
[2022-10-26] MEDS: lamoTRIgine 25 MG TAB PO SCH (20:33)
[2022-10-26] MEDS: SODIUM CHLORIDE 0.9% 1,000 ML IV SCH (20:34)
[2022-10-26 20:46] LABS: Amphetamine Screen,Urine Not Detected (NotDetected); Barbiturate Screen,Urine Not Detected (NotDetected); Benzodiazepines Screen,Urine Detected (NotDetected); Cocaine Screen,Urine Not Detected (NotDetected); Methadone Screen, Urine Not Detected (NotDetected); Opiate Screen,Urine Not Detected (NotDetected); Oxycodone Screen, Urine Not Detected (NotDetected); Phencyclidine Screen,Urine Not Detected (NotDetected); Tricyclic Antidepressant,Urine Not Detected (NotDetected); Urn Cannabinoid Scrn Not Detected (NotDetected)
[2022-10-27] MEDS: ACETAMINOPHEN TAB 325 MG TAB PO PRN ×2 (00:56→21:09)
[2022-10-27 01:05] LABS: Glucose,Whole Blood 102 mg/dL (70-110)
[2022-10-27] MEDS: VENLAFAXINE HCL ER 150 MG CAP PO SCH (09:22)
[2022-10-27 09:38] LABS: African American GFR (CKD) 136.9 (60.0-200.0); Anion Gap 6.8 mmol/L (10.00-18.00); Blood Urea Nitrogen 5.4 mg/dL (9.0-27.0); Calcium 8.4 mg/dL (8.7-10.3); Carbon Dioxide 28.2 mmol/L (20.0-27.5); Non-African American GFR(CKD) 118.1 (60.0-200.0); Potassium 4.3 mmol/L (3.5-5.5)
--- NOTE | 2022-10-27 12:07 | P.CNNES ---
History of Present Illness Consult date: 10/27/22 Requesting physician: Juanita Trammell Reason for Consult: altered mentaiton, possible post ictal state History of Present Illness: Patient is a 37-year-old female came to the hospital by ambulance yesterday at 2 PM for a syncopal spell at work. Patient states that she woke up yesterday morning at 7 AM and felt her hands felt numb and cold. By the afternoon, she felt her hands were swelling and still felt cold. She was also feeling dizzy, lightheaded with some spinning sensation. 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 She does not remember details after. She states that she remembers very minimal events at work place, but could not move. She remembers being in the ambulance, but does not remember any details and finally woke up in the ER. Patient did not bite her tongue, did not lose control of urine. No history of childhood epilepsy or seizures. No history of head trauma. She has never passed out before. She does admit to having chest heaviness. Patient says that she has been feeling dizzy and lightheaded yesterday when she woke up. She has been feeling lightheaded for the last few days, comes and goes, not related to any activity or position change. On asking about visual symptoms, patient states that since yesterday morning, she is also noticing binocular diplopia, which does not resolve with closing one or the other eye. She still has this binocular diplopia. On asking about numbness of the lower limbs, patient states that since yesterday, she also has numbness of both lower limbs from hips down to the feet bilaterally. No previous history of numbness in the extremities. Patient admits to having neck pain about 3/10 for "years", but since yesterday has been 7/10. Denies any low back pain. Patient states her balance is not good, but does not fall. As per EMS flow sheet, when they arrived, patient was laying on the right side, on the ground. Coworkers mentioned that patient noticed that she was having difficulty holding her pen and wanted her blood pressure taken. Patient was noted to then have collapsed onto the table in front of her while seated. Patient was tremoring on their arrival but was able to track with her eyes and attempted to respond verbally. EKG showed sinus tachycardia. Patient's vitals at the scene was blood pressure 155/95, pulse rate 119, respiration 20 and saturation 100%, blood sugar 108. CT head showed no acute intracranial process. Chest x-ray normal. EKG is shows sinus tachycardia with heart rate 119, very short OH interval. Blood test shows normal CBC, PT/PTT, sodium 136 potassium 3.1, normal renal and hepatic panel. Urine drug screen positive for benzodiazepine. Blood alcohol level was <10. Ammonia is <9 Patient denies any tobacco or alcohol or drug use, or marijuana. Patient denies any history of optic neuritis, any history of vertigo. Patient admits to having intermittent episodes of numbness and tingling involving the right hand and foot, lasting for not more than 15-20 minutes, which may occur about every few days, since in the past 2 months. Patient does have history of bipolar disorder, for which she takes Lamictal 250 mg daily. Does not take any control pills. Also on Effexor and Straterra. Review of Systems Constitutional: Denies chills, Denies fever Eyes: bilateral diplopia, denies blurred vision, denies loss of vision Ears, nose, mouth and throat: Denies headache, Denies sore throat Cardiovascular: Reports chest pain, Reports palpitations, Reports rapid heart beat, Reports syncope Respiratory: Denies cough Gastrointestinal: Denies abdominal pain, Denies diarrhea, Denies nausea, Denies vomiting Genitourinary: Denies dysuria, Denies hematuria Musculoskeletal: Reports arm numbness/tingling, Reports leg numbness/tingling Integumentary: Denies pruritus, Denies rash Neurological: Reports as per HPI Psychiatric: Reports anxiety, Reports depression Endocrine: Denies fatigue, Denies weight change Hematologic/Lymphatic: Denies easy bruising Past Medical History Past Medical History: No Reported History History of Any Multi-Drug Resistant Organisms: None Reported Past Surgical History: Section Past Anesthesia/Blood Transfusion Reactions: No Reported Reaction Past Psychological History: No Psychological Hx Reported Past Alcohol Use History: Rare Past Drug Use History: None Reported - Past Family History Mother Family Medical History: No Reported History Medications and Allergies Home Medications Medication Instructions Recorded Confirmed Type Atomoxetine HCl 25 mg PO BID 10/26/22 10/26/22 History Ferrous Sulfate [Slow Release Iron] 140 mg PO DAILY 10/26/22 10/26/22 History SUMAtriptan succinate [Imitrex] 25 mg PO BID PRN 10/26/22 10/26/22 History Venlafaxine HCl [Effexor XR] 150 mg PO DAILY 10/26/22 10/26/22 History hydrOXYzine HCL [Atarax] 10 mg PO TID PRN 10/26/22 10/26/22 History lamoTRIgine 200 mg PO HS 10/26/22 10/26/22 History lamoTRIgine [LaMICtal] 50 mg PO HS 10/26/22 10/26/22 History Allergies Allergy/AdvReac Type Severity Reaction Status Date / Time No Known Allergies Allergy Verified 10/26/22 17:18 Physical Examination - Vital Signs Vital Signs: Vital Signs Temp Pulse Pulse Resp BP BP Pulse Ox 10/27/22 07:00 98.0 F 83 16 105/73 98 10/27/22 01:13 97.5 F L 95 16 117/80 98 10/26/22 18:29 98.2 F 101 H 16 110/73 98 10/26/22 18:18 98 18 120/81 96 10/26/22 15:31 98 18 128/74 99 10/26/22 14:06 98.8 F 105 H 18 131/91 99 Intake and Output 10/26/22 10/27/22 10/27/22 22:59 06:59 14:59 Other: Voiding Method Toilet # Voids 1 2 1 Weight 70.307 kg Patient is a young female, in no acute distress. Patient has a slight flat affect. Patient is alert awake oriented to time place and person. Speech and language functions are normal. Patient can name and repeat very well. No aphasia or dysarthria. Attention, concentration and fund of knowledge is adequate. On cranial nerve examination, pupils are equal, round and reacting to light, visual richards are full on confrontation, with no neglect on double simultaneous stimulation. Extraocular muscles are intact with no nystagmus. Face is symmetric, tongue protrudes to the midline. Palatal elevation and sensation normal, hearing and shoulder shrug normal, facial sensation decreased on the right side of the face. On muscle strength testing, there is no pronator drift and the strength is normal in arms and legs distally and proximally, except river captain 4 bilaterally, triceps 5-in hip flexion 5-. Rest of the examination is normal. Deep tendon reflexes are (right/left) biceps 1+/1+, brachioradialis 2/1, knee 2/2, ankles 1+/1+ and plantars are downgoing bilaterally with no clonus. Sensory to touch is decreased in the right arm and leg as compared to the left side. Cerebellar function showed no ataxia for [id number] testing. No dysdiadochokinesia. No ataxia for [id number] testing on either side. Tone an d bulk of muscles normal. Gait deferred.. On general examination, there is no carotid bruit or murmur, S1-S2 audible. Chest is clear on consultation. Abdomen is soft nontender. No organomegaly, b owel sounds present. Peripheral pulses are present. No edema. Results - Laboratory Findings CBC and BMP: 10/26/22 14:13 10/27/22 05:40 Abnormal Lab Findings: Abnormal Labs 10/26/22 10/26/22 10/27/22 14:13 14:13 05:40 Sodium 136 L Potassium 3.1 L Carbon Dioxide 28.2 H Anion Gap 6.80 L BUN 5.4 L BUN/Creatinine Ratio 9.00 L Glucose 108 H Calcium 8.4 L U Benzodiazepines Scrn Detected H Assessment and Plan Assessment: * Syncopal spell, unclear etiology. Syncope versus seizure. * New onset numbness of her hands and distal forearm, and bilateral lower extremities (hips down to the feet), unclear etiology. Rule out demyelinating process. * Cervicalgia for long time, worse since yesterday. * Binocular diplopia, that does not resolve with closing one or the other eye. Appears functional pattern. * Anxiety disorder * Bipolar disorder. * Tachycardia Plan: * MRI of the brain with and without contrast to rule out CVA, rule out MS. * MRI of the cervical spine to rule out spinal stenosis, demyelinating disease * EEG has been ordered * 2-D echo * Continue telemetry monitoring. Patient has tachycardia. We will check TSH and free T4. * B12, folate. * Neurology will follow. Thank you for the consult. Time with Patient: Greater than 30
[2022-10-27 12:38] LABS: T4, Free (Free Thyroxine) 1.71 ng/dL (0.78-2.19)
--- NOTE | 2022-10-27 14:17 | P.PN ---
Subjective Progress Note Date: 10/27/22 Patient is a 37-year-old female with no known past medical history who presented to the ER via EMS from work. Per EMS patient had some difficulty grabbing her pen and then had a syncopal episode. After waking she was unable to speak. In the ER she underwent an extensive evaluation. On arrival her heart rate was 105 with the remainder of her vital signs were within normal limits. Initial la boratory analysis was remarkable for potassium of 3.1. CT head showed no acute process. She was given 2 mg of Ativan in the ER for some tremor-like activity. She was admitted for further monitoring. Neurology was consulted. The night after admission she had 2 more episodes where she started to have a headache complaint of trouble swallowing, delayed speech with difficulties beginning. Patient was unable to open her mouth and had some jerking movements bilaterally but was still responding verbally. She was seen by the overnight physician who did not recommend any benzodiazepine treatment as this did not appear consistent with seizure-like activity. She again had one additional episode or she initially started with clear and appropriate speech and then and she began talking had some tremulous movements of her head that resolved with distraction. Patient seen and examined at bedside. She continues to complain of a headache. It is at the base of her skull and wraps forward. She does report a history of migraine headaches in the past. She states she was just diagnosed with ne uropathy by Dr. Paredes. She reports that it is an unknown cause. He diagnosed with lower extremity neuropathy but then provided an injection into her left shoulder. She reports that she is supposed to get injections into her hips in the next coming weeks. She also reports that she has been being treated for anxiety and depression. She does state there is a lot of stress at home recently she is overdue for follow-up with her psychiatrist who prescribes her medications. She has been in therapy in the past but is currently. General: nontoxic, no distress, appears at stated age Derm: warm, dry Head: atraumatic, normocephalic, symmetric Eyes: EOMI, no lid lag, anicteric sclera Mouth: no lip lesion, mucus membranes moist Cardiovascular: S1S2 reg, no murmur, positive posterior tibial pulse bilateral, Lungs: CTA bilateral, no rhonchi, no rales , no accessory muscle use Abdominal: soft, nontender to palpation, no guarding, no appreciable organomegaly Ext: no gross muscle atrophy, no edema, no contractures Neuro: CN II-XI grossly intact, no focal neuro deficits, speech clear and flu ent, no tremors Psych: Alert, oriented, appropriate affect Assessment/Plan: Episode of unresponsiveness-seizure versus syncope versus psychologic reaction -Seizure precautions -EEG -Neurology recs appreciated. MRI salomón and C-spine, folic acid and B12 -Echocardiogram -Telemetry -UDS with benzodiazepine - check Lamictal level Migraine headaches -As needed Imitrex Neuropathy -Outpatient follow-up Depression and anxiety - Effexor, Lamictal, and hydroxyzine Hypokalemia, resolved DVT prophylaxis: SCDs Discussed with: Patient, family, Dr. Lazaro, nursing Anticipated discharge date: in AM Anticipated discharge place: Home A total of 35 minutes was spent on the care of this complex patient more than 50% of the time was spent in counseling and care coordination. Objective - Vital Signs Vital signs: Vital Signs Temp 98.0 F 10/27/22 07:00 Pulse 83 10/27/22 07:00 Resp 16 10/27/22 07:00 BP 105/73 10/27/22 07:00 Pulse Ox 98 10/27/22 07:00 FiO2 Intake & Output 10/26/22 10/27/22 10/27/22 18:59 06:59 18:59 Intake Total 240 Balance 240 Weight 70.307 kg Intake: Oral 240 Other: Voiding Method Toilet # Voids 2 1 - Labs CBC & Chem 7: 10/26/22 14:13 10/27/22 05:40 Labs: Abnormal Lab Results - Last 24 Hours (Table) 10/26/22 10/26/22 10/27/22 Range/Units 14:13 14:13 05:40 Sodium 136 L (137-145) mmol/L Potassium 3.1 L (3.5-5.1) mmol/L Carbon Dioxide 28.2 H (20.0-27.5) mmol/L Anion Gap 6.80 L (10.00-18.00) mmol/L BUN 5.4 L (9.0-27.0) mg/dL BUN/Creatinine Ratio 9.00 L (12.00-20.00) Ratio Glucose 108 H (74-99) mg/dL Calcium 8.4 L (8.7-10.3) mg/dL U Benzodiazepines Scrn Detected H (NotDetected)
--- NOTE | 2022-10-27 14:25 | MR ---
EXAMINATION TYPE: MR brain wo/w greg sean DATE OF EXAM: 10/27/2022 COMPARISON: None HISTORY: Numbness tingling, ?MS TECHNIQUE: Multiplanar, multisequence images of the brain and brainstem is performed without and with IV contras t, utilizing 7 mL intravenous Gadavist . Ventricles and sulci appear normal. There is no mass effect or midline shift. No evidence of intracra nial hemorrhage. Diffusion images show no sign of an acute infarct. On the FLAIR images there are raymon e white matter high signal foci in both cerebral hemispheres. Largest is in the left posterior tempor al lobe measuring 8 mm. There are 4 mm foci in the right posterior and left posterior temporal lobes. There is 3 mm focus in the left posterior frontal lobe. Total number is 4 lesions. Corpus callosum is intact. Brainstem is intact. There is no evidence of a sellar mass. No evidence of orbital mass. The cervical vertebra have normal spacing and alignment. Posterior elements are intact. There is mini mal posterior disc bulging at C5-6 and C6-7. There is developmentally adequate spinal canal. No spina l stenosis. Cervical spinal cord has normal signal pattern. No edema. Contrast images show no pathologic intracranial enhancement. There is no pathologic cervical spine en hancement. There is normal enhancement of the venous sinuses. IMPRESSION: There are several white matter intracranial nonenhancing high signal foci suggestive of demyelinating disease. Normal cervical spinal cord. Minimal disc bulging at C5-6 and C6-7.
[2022-10-27] MEDS: SODIUM CHLORIDE 0.9% 1,000 ML IV SCH (15:20)
[2022-10-27] MEDS: lamoTRIgine 100 MG TAB PO SCH (20:09)
[2022-10-27] MEDS: lamoTRIgine 25 MG TAB PO SCH (20:10)
[2022-10-28] MEDS: VENLAFAXINE HCL ER 150 MG CAP PO SCH (08:44)
--- NOTE | 2022-10-28 14:26 | P.PN ---
Subjective Progress Note Date: 10/28/22 Patient is a 37-year-old female with no known past medical history who presented to the ER via EMS from work. Per EMS patient had some difficulty grabbing her pen and then had a syncopal episode. After waking she was unable to speak. In the ER she underwent an extensive evaluation. On arrival her heart rate was 105 with the remainder of her vital signs were within normal limits. Initial la boratory analysis was remarkable for potassium of 3.1. CT head showed no acute process. She was given 2 mg of Ativan in the ER for some tremor-like activity. She was admitted for further monitoring. Neurology was consulted. The night after admission she had 2 more episodes where she started to have a headache complaint of trouble swallowing, delayed speech with difficulties beginning. Patient was unable to open her mouth and had some jerking movements bilaterally but was still responding verbally. She was seen by the overnight physician who did not recommend any benzodiazepine treatment as this did not appear consistent with seizure-like activity. She again had one additional episode or she initially started with clear and appropriate speech and then and she began talking had some tremulous movements of her head that resolved with distraction. She was seen by neurology who recommended MRI brain. This was completed and demonstrated for different white matter changes. Patient seen and examined at bedside. She reports that overnight her legs felt heavy again and that she is having some perioral numbness, she report a IRIZARRY that is different from her migraines. General: nontoxic, no distress, appears at stated age Derm: warm, dry Head: atraumatic, normocephalic, symmetric Eyes: EOMI, no lid lag, anicteric sclera Mouth: no lip lesion, mucus membranes moist Cardiovascular: S1S2 reg, no murmur, positive posterior tibial pulse bilateral, Lungs: CTA bilateral, no rhonchi, no rales , no accessory muscle use Abdominal: soft, nontender to palpation, no guarding, no appreciable organomegaly Ext: no gross muscle atrophy, no edema, no contractures Neuro: CN II-XI grossly intact, no focal neuro deficits, speech clear and fluent, no tremors Psych: Alert, oriented, appropriate affect Assessment/Plan: Episode of unresponsiveness-seizure versus syncope versus psychologic reaction MRI brain with white matter changes. -Seizure precautions - Await EEG results -Neurology recs appreciated -Folic acid and B12 levels pending -Echocardiogram pending -Telemetry -UDS with benzodiazepine -Lamictal level pending Migraine headaches -As needed Imitrex Neuropathy -Outpatient follow-up Depression and anxiety - Effexor, Lamictal, and hydroxyzine Hypokalemia, resolved Echocardiogram unavailable yesterday or today. Will need one done prior to discharge secondary to unresponsive episode. DVT prophylaxis: SCDs Discussed with: Patient,nursing Anticipated discharge date: in AM Anticipated discharge place: Home A total of 35 minutes was spent on the care of this complex patient more than 50% of the time was spent in counseling and care coordination. Active Medications Generic Name Dose Route Start Last Admin Trade Name Freq PRN Reason Stop Dose Admin Acetaminophen 650 mg 10/26/22 18:57 10/27/22 21:09 Acetaminophen Tab 325 Mg Tab PO 650 mg Q6HR PRN Administration Mild Pain or Fever > 100.5 Bisacodyl 5 mg 10/26/22 18:57 Bisacodyl 5 Mg Tablet.Dr PO DAILY PRN Constipation Fluoxetine HCl 20 mg 10/28/22 14:30 Fluoxetine Hcl 20 Mg Cap PO DAILY MARSHAL Lamotrigine 50 mg 10/26/22 21:00 10/27/22 20:10 Lamotrigine 25 Mg Tab PO 50 mg HS MARSHAL Administration Lamotrigine 200 mg 10/26/22 21:00 10/27/22 20:09 Lamotrigine 100 Mg Tab PO 200 mg HS MARSHAL Administration Melatonin 3 mg 10/26/22 18:57 Melatonin 3 Mg Tablet PO HS PRN Insomnia Naloxone HCl 0.2 mg 10/26/22 16:20 Naloxone 0.4 Mg/Ml 1 Ml Vial IV Q2M PRN Opioid Reversal Ondansetron HCl 4 mg 10/26/22 18:57 Ondansetron 4 Mg/2 Ml Vial IVP Q8HR PRN Nausea And Vomiting Venlafaxine HCl 150 mg 10/27/22 09:00 10/28/22 08:44 Venlafaxine Hcl Er 150 Mg Cap PO 150 mg DAILY MARSHAL Administration Objective - Vital Signs Vital signs: Vital Signs Temp 98 F 10/28/22 13:16 Pulse 96 10/28/22 13:16 Resp 14 10/28/22 13:16 BP 106/73 10/28/22 13:16 Pulse Ox 99 10/28/22 13:16 FiO2 Intake & Output 10/27/22 10/28/22 10/28/22 18:59 06:59 18:59 Intake Total 476 358 Balance 476 358 Intake: Intake, IV Titration 0 Amount Sodium Chloride 0.9% 1, 0 000 ml @ 75 mls/hr IV . [id number] [facility] Rx#:[id number] Oral 476 358 Other: Voiding Method Toilet # Voids 1 2 2 - Labs CBC & Chem 7: 10/26/22 14:13 10/27/22 05:40
[2022-10-28] MEDS: FLUoxetine HCL 20 MG CAP PO SCH (15:06)
--- NOTE | 2022-10-28 17:21 | P.CN ---
Psychiatric Consult - . Consult date: 10/28/22 Consult:: 10/28/22 16:26 IDENTIFYING DATA: This patient is a 37-year-old employed female REASON FOR REFERRAL: Psychiatry was consulted for potential conversion disorder and anxiety HISTORY OF PRESENT ILLNESS: The patient presented to the hospital on 10/26/22 for an episode of unresponsiveness. UDS was positive for benzodiazepines. Neurology was consulted for syncope versus seizure. MRI of the brain, MRI of the C-spine, EEG, Echo, B12, folate levels were ordered. MRIs completed 10/27/2022 demonstrates several white matter intracranial nonenhancing high signal foci suggestive of demyelinating disease and a normal cervical spinal cord. Lamotrigine, folate, and B12 levels have not resulted. Patient was seen bedside this afternoon. She states that she has been mentally stressed due to her son being diagnosed with Tourette's and potentially seizures. She herself reports that she has been having various neurological symptoms for which she has been seeing outpatient neurologist. She reports that she completed EEG and MRI outpatient and it were negative for everything. She states that managing her medical care and her son's has been stressful for her. She reports being gone Effexor, Strattera, Lamictal for her mental health. She does not find the Effexor to be helpful for her anxiety. She reports that she has trouble sleeping due to her anxiety. She endorses feeling on edge, having trouble concentrating, and feeling keyed up. Shirley states that her mood has been "up and down". She denies feeling overly depressed for the past few weeks but has been strained due to taking care of 4 children in addition to the medical care. She reports a prior diagnosis of bipolar 2 but denies symptoms consistent with hypomania or nicholas. At this time patient denies any suicidal or homicidal ideations, intent or plan, as asked and assessed. Patient denies any auditory, visual hallucinations and denies any paranoia or delusions. PAST PSYCHIATRIC HISTORY: She states she sees Dr. Poole for psychiatry who diagnosed her with OCD, MITCH, and Bipolar 2. Patient is currently on Effexor 150 mg daily, Lamictal 250 mg at night, and Strattera outpatient. She denies side effects to these medications but does not feel that the Effexor has been effective for concentration or her anxiety. Trazodone and Vistaril made her overly sedated into the daytime. Patient denies any previous psychiatric hospitalizations. Patient denies any history of suicide attempts in the past. PAST MEDICAL HISTORY: Migraines ALLERGIES: as per EMR. CHEMICAL DEPENDENCY HISTORY: Patient denies all substance use. FAMILY PSYCHIATRIC/SUBSTANCE USE HISTORY: Son- Tourette's. Daughter- generalized anxiety disorder SOCIAL HISTORY: Patient reports having been with her current for the past 8.5 years and for 1.5 years. 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 MENTAL STATUS EXAM: General Appearance: Patient appears to be stated age is alert, pleasant, and cooperative. Patient appears to have good hygiene and grooming wearing hospital gown with good eye contact. Behavior: Patient is calmly lying in bed without any agitated behavior. Pleasant Speech: Patient's speech is fluent and nonpressured. Mood/Affect: Patient reports their mood is "up and down", affect is bright, euthymic Suicidality/Homicidality: Patient denies having any suicidal or homicidal ideation intent or plan. Perceptions: Patient denies any visual hallucinations and denies any auditory hallucinations Though content/process: There is no evidence of any delusional thought content and thought process is linear and goal-directed. Memory and concentration: AOX3, grossly intact for the purposes of this session. Judgment and insight: fair IMPRESSIONS: Adjustment Disorder with depression and anxiety Generalized Anxiety Disorder R/o conversion disorder - trying to rule out psychogenic nonepileptiform seizures PLAN: -At this time patient DOES NOT meet criteria for inpatient psychiatric admi ssion. -Given that conversion disorder is a diagnosis of exclusion, patient will need further workup by medical team and neurology. Video EEG is gold standard for diagnosing conversion disorder vs seizures -Would recommend the following medication changes/additions: Add Prozac 20 mg daily. -Continue Effexor and Lamictal. Might consider tapering Effexor if responding to Prozac -Patient to f/u with outpatient mental health providers -Communicated plan to patient's nurse -Will continue to follow along -Please contact with any questions. 10/28/22 17:01 10/28/22 17:21
[2022-10-28] MEDS: lamoTRIgine 25 MG TAB PO SCH (20:09)
[2022-10-28] MEDS: lamoTRIgine 100 MG TAB PO SCH (20:09)
[2022-10-28] MEDS: ACETAMINOPHEN TAB 325 MG TAB PO PRN (20:11)
--- NOTE | 2022-10-29 00:15 | P.PN ---
Subjective Progress Note Date: 10/28/22 Patient patient was seen for a follow-up. Patient's was also present. Patient states that she is feeling little better. Not the great. Right leg still feels weird. Patient has loss of sensation in both feet, right more than left. Sometimes she points her symptoms to the right leg, but when I asked if they are bilateral, she says yes, but the symptoms are more in the right leg. Regarding severe 80 of botherness, the right leg is 6/10 and the left is 2/10 where 10 is the worst. Her symptoms involve the right arm from shoulder to the hand /10. Telemetry monitoring showing sinus tachycardia with heart rate in 107. Objective - Vital Signs Vital signs: Vital Signs Temp 98 F 10/28/22 13:16 Pulse 96 10/28/22 13:16 Resp 14 10/28/22 13:16 BP 106/73 10/28/22 13:16 Pulse Ox 99 10/28/22 13:16 FiO2 Intake & Output 10/27/22 10/28/22 10/28/22 18:59 06:59 18:59 Intake Total 476 358 Balance 476 358 Intake: Intake, IV Titration 0 Amount Sodium Chloride 0.9% 1, 0 000 ml @ 75 mls/hr IV . [id number] [facility] Rx#:[id number] Oral 476 358 Other: Voiding Method Toilet # Voids 1 2 2 - Exam Patient's mental status, speech and language function are normal. Detail testing deferred. - Labs CBC & Chem 7: 10/26/22 14:13 10/27/22 05:40 Assessment and Plan Assessment: * Syncopal spell, unclear etiology. Syncope versus seizure. * New onset numbness of her hands and distal forearm, and bilateral lower extremities (hips down to the feet, right more than left), unclear etiology. Probably due to B12/folate deficiency. Rule out demyelinating process. * Abnormal brain MRI, with evidence of demyelinating lesions in the periventricular region, concerning for demyelinating disease. No contrast enhancement or active lesions seen. * Cervicalgia for long time, worse since yesterday. * Binocular diplopia, that does not resolve with closing one or the other eye. Appears functional pattern. * Anxiety disorder * Bipolar disorder. * Tachycardia Plan: * MRI of the brain with and without contrast was performed, which revealed several white matter intracranial nonenhancing high signal foci suggestive of demyelinating disease. I personally reviewed MRI of the brain, and agree with the findings. There are 3 white matter lesions in the left periventricular region (posterior region), and one in the right frontal periventricular region. The most prominent lesion measuring 1 x 0.5 cm in the left posterior temporal periventricular white matter is concerning for demyelinating disease. No abnormal enhancement seen. No evidence of acute CVA. * MRI of the cervical spine without contrast revealed no abnormal signal in the cervical spinal cord. No spinal stenosis. * EEG pending * 2-D echo * Telemetric monitoring showing sinus tachycardia. No other arrhythmia. * TSH 3.48, and free T4 1.71. * B12 225, folate 6.0. Patient will be started on vitamin B12 and folate replacement. We will check Lyme titer, KAYDEN, MMA. Lamictal level pending. * We will obtain outside records from Dr. Fulton office.
[2022-10-29] MEDS: VENLAFAXINE HCL ER 150 MG CAP PO SCH (10:29)
[2022-10-29] MEDS: CYANOCOBALAMIN 1,000 MCG/ML 1 ML VIAL IM SCH (10:29)
[2022-10-29] MEDS: FOLIC ACID 1 MG TAB PO SCH (10:29)
[2022-10-29] MEDS: FLUoxetine HCL 20 MG CAP PO SCH (10:29)
--- NOTE | 2022-10-29 12:36 | CA ---
Transthoracic Echo Report Name: Shirley Roth Age: 37 Gender: F : 1985 Exam Date: 10/29/2022 07:44 Exam Location: [facility] Ht (in): 64 Wt (lb): 155 Ordering Physician: Earl Lazaro MD Attending/Referring Phys: Component Overhaul Operator Rosalba Velásquez RDCS Procedure CPT: Indications: Syncope versus seizure Cardiac Hx: Technical Quality: Good Contrast 1: Total Dose (mL): Contrast 2: Total Dose (mL): MEASUREMENTS (Male / Female) Normal Values 2D ECHO LV Diastolic Diameter PLAX 4.1 cm 4.2 - 5.9 / 3.9 - 5.3 cm LV Systolic Diameter PLAX 3.2 cm IVS Diastolic Thickness 0.5 cm 0.6 - 1.0 / 0.6 - 0.9 cm LVPW Diastolic Thickness 0.7 cm 0.6 - 1.0 / 0.6 - 0.9 cm LV Relative Wall Thickness 0.3 RV Internal Dim ED PLAX 2.1 cm LA Systolic Diameter LX 2.3 cm 3.0 - 4.0 / 2.7 - 3.8 cm LA Volume 32.1 cm??? 18 - 58 / 22 - 52 cm??? M-MODE Aortic Root Diameter MM 2.8 cm LA Systolic Diameter MM 2.5 cm LA Ao Ratio MM 0.9 MV E Point Septal Separation 0.2 cm AV Cusp Separation MM 1.6 cm DOPPLER MV Area PHT 4.6 cm??? Mitral E Point Velocity 75.6 cm/s Mitral A Point Velocity 57.7 cm/s Mitral E to A Ratio 1.3 MV Deceleration Time 165.3 ms MV E' Velocity 9.1 cm/s Mitral E to MV E' Ratio 8.4 TR Peak Velocity 194.2 cm/s TR Peak Gradient 15.1 mmHg Right Ventricular Systolic Press 20.1 mmHg FINDINGS Left Ventricle Low normal left ventricular systolic function was EF at 50% Right Ventricle The right ventricle is normal in size and function. Right Atrium The right atrium is normal in size. Left Atrium The left atrium is normal in size. BUBBLE STUDY PERFORMED NO CROSSING NOTED. Mitral Valve Structurally normal mitral valve without significant stenosis or prolapse. There is mild mitral regurgitation. Aortic Valve Structurally normal aortic valve without significant sclerosis or stenosis. There is no aortic regurgitation. Tricuspid Valve Structurally normal tricuspid valve without significant stenosis. Pulmonary artery systolic pressure is normal. Pulmonic Valve Structurally normal pulmonic valve without significant stenosis. There is no pulmonic regurgitation. Pericardium Normal pericardium without effusion. Aorta Normal aortic root dimension. CONCLUSIONS Low normal left ventricular systolic function was EF at 50% Previewed by: Dr. Sang Johnson MD (Electronically Signed) Final Date: 29 October 2022 12:35
--- NOTE | 2022-10-29 14:10 | P.PN ---
Progress Note - Text Progress Note Date: 10/29/22 Interval History: Patient was seen lying in bed today and was agreeable hearing and speech assistant today. Cory lopez was seen today by psychiatry for follow-up. Patient claims that she is doing a bit better today. She claims that her depression and anxiety have been improving. She spoke briefly about her symptoms mainly neurological that had occurred prior to her coming into the hospital. She still waiting on her EEG today. She spoke with the neurologist earlier about her MRI findings and possible rule out of MS. Patient states that she is feeling fairly positive and claims that she did not sleep well last night. We spoke about different medication options for nighttime and she was agreeable to have Remeron ordered as a prn. She currently has an outpatient nurse practitioner who provides her medications. At this time patient denies any suicidal or homical ideations, intent or plan. Patient denies any auditory, visual hallucinations and denies any paranoia or delusions. Patient denies any side effects from the medications and has been compliant with meds. Mental Status Exam: General Appearance: Patient appears to be stated age is alert, pleasant, and cooperative. Patient appears to have good hygiene and grooming wearing hospital gown with good eye contact. Behavior: Patient is calmly lying in bed without any agitated behavior. Pleasant Speech: Patient's speech is fluent and nonpressured. Mood/Affect: Patient reports their mood is "better", affect is bright, euthymic Suicidality/Homicidality: Patient denies having any suicidal or homicidal ideation intent or plan. Perceptions: Patient denies any visual hallucinations and denies any auditory hallucinations Though content/process: There is no evidence of any delusional thought content and thought process is linear and goal-directed. Memory and concentration: AOX3, grossly intact for the purposes of this session. Judgment and insight: fair IMPRESSIONS: Adjustment Disorder with depression and anxiety Generalized Anxiety Disorder r/o MS vs seizure disorder vs conversion disorder PLAN: -At this time patient DOES NOT meet criteria for inpatient psychiatric admission. -awaiting neuro recs and EEG findings. MRI completed showing white matter lesions possibly suggesting demylenating disease -Would recommend the following medication changes/additions: continue Effexor and Lamictal as perscribed. d/c Prozac. added remeron 15 mg qhs prn for insomnia. -Patient to f/u with outpatient mental health providers -Communicated plan to patient's nurse and Dr Mart -at this time psychiatry will sign off -Please contact with any questions.
[2022-10-29 14:14] LABS: Lyme IgG/IgM 0.06 Index
--- NOTE | 2022-10-29 15:55 | P.PN ---
Subjective Progress Note Date: 10/29/22 Patient is a 37-year-old female with no known past medical history who presented to the ER via EMS from work. Per EMS patient had some difficulty grabbing her pen and then had a syncopal episode. After waking she was unable to speak. In the ER she underwent an extensive evaluation. On arrival her heart rate was 105 with the remainder of her vital signs were within normal limits. Initial la boratory analysis was remarkable for potassium of 3.1. CT head showed no acute process. She was given 2 mg of Ativan in the ER for some tremor-like activity. She was admitted for further monitoring. Neurology was consulted. The night after admission she had 2 more episodes where she started to have a headache complaint of trouble swallowing, delayed speech with difficulties beginning. Patient was unable to open her mouth and had some jerking movements bilaterally but was still responding verbally. She was seen by the overnight physician who did not recommend any benzodiazepine treatment as this did not appear consistent with seizure-like activity. She again had one additional episode or she initially started with clear and appropriate speech and then and she began talking had some tremulous movements of her head that resolved with distraction. She was seen by neurology who recommended MRI brain. This was completed and demonstrated for different white matter changes. EEG was normal. Concerns for possible multiple sclerosis and patient was started on IV steroids. Patient seen and examined at bedside. Her perioral tingling has resolved. She continues to struggle with her right sided overall feels weak. General: nontoxic, no distress, appears at stated age Derm: warm, dry Head: atraumatic, normocephalic, symmetric Eyes: EOMI, no lid lag, anicteric sclera Mouth: no lip lesion, mucus membranes moist Cardiovascular: S1S2 reg, no murmur, positive posterior tibial pulse bilateral, Lungs: CTA bilateral, no rhonchi, no rales , no accessory muscle use Abdominal: soft, nontender to palpation, no guarding, no appreciable organomegaly Ext: no gross muscle atrophy, no edema, no contractures Neuro: CN II-XI grossly intact, no focal neuro deficits, speech clear and flue nt, no tremors Psych: Alert, oriented, appropriate affect Assessment/Plan: Episode of unresponsiveness associated with right sided tingling, difficulty with speech, and weakness--probable new multiple sclerosis. -MRI brain with white matter changes. -Seizure precautions -EEG without signs of epileptiform activity --Neurology recs appreciated: discussed with Dr. Lazaro. Concern for possible MS. We'll plan on lumbar puncture in a.m. Will start IV steroids with plan for 3 days with possible need to continue for 5 days. -Echocardiogram EF 50% -Telemetry -UDS with benzodiazepine -Lamictal level normal Relative B12 and folic acid deficiency -Agree with supplementation -Plan for sublingual B12 on discharge Migraine headaches -As needed Imitrex Neuropathy -Outpatient follow-up Depression and anxiety - Effexor, Lamictal, and hydroxyzine - psych recs apprecaited Hypokalemia, resolved Transitioned to inpatient status as concerns are for possible new onset MS with flare requiring IV steroids. DVT prophylaxis: SCDs Discussed with: Patient,nursing Anticipated discharge date: In 3-[address]: Home A total of 35 minutes was spent on the care of this complex patient more than 50% of the time was spent in counseling and care coordination. Active Medications Generic Name Dose Route Start Last Admin Trade Name Freq PRN Reason Stop Dose Admin Acetaminophen 650 mg 10/26/22 18:57 10/28/22 20:11 Acetaminophen Tab 325 Mg Tab PO 650 mg Q6HR PRN Administration Mild Pain or Fever > 100.5 Bisacodyl 5 mg 10/26/22 18:57 Bisacodyl 5 Mg Tablet. PO DAILY PRN Constipation Cyanocobalamin 1,000 mcg 10/29/22 09:00 10/29/22 10:29 Cyanocobalamin 1,000 Mcg/Ml 1 Ml Vial IM 1,000 mcg DAILY MARSHAL Administration Folic Acid 1 mg 10/29/22 09:00 10/29/22 10:29 Folic Acid 1 Mg Tab PO 1 mg DAILY MARSHAL Administration Lamotrigine 50 mg 10/26/22 21:00 10/28/22 20:09 Lamotrigine 25 Mg Tab PO 50 mg HS MARSHAL Administration Lamotrigine 200 mg 10/26/22 21:00 10/28/22 20:09 Lamotrigine 100 Mg Tab PO 200 mg HS MARSHAL Administration Melatonin 3 mg 10/26/22 18:57 Melatonin 3 Mg Tablet PO HS PRN Insomnia Mirtazapine 15 mg 10/29/22 21:00 Mirtazapine 15 Mg Tab PO HS PRN Insomnia Naloxone HCl 0.2 mg 10/26/22 16:20 Naloxone 0.4 Mg/Ml 1 Ml Vial IV Q2M PRN Opioid Reversal Ondansetron HCl 4 mg 10/26/22 18:57 Ondansetron 4 Mg/2 Ml Vial IVP Q8HR PRN Nausea And Vomiting Venlafaxine HCl 150 mg 10/27/22 09:00 10/29/22 10:29 Venlafaxine Hcl Er 150 Mg Cap PO 150 mg DAILY MARSHAL Administration Objective - Vital Signs Vital signs: Vital Signs Temp 98 F 10/29/22 12:54 Pulse 87 10/29/22 12:54 Resp 14 10/29/22 12:54 BP 96/63 10/29/22 12:54 Pulse Ox 98 10/29/22 12:54 FiO2 Intake & Output 10/28/22 10/29/22 10/29/22 18:59 06:59 18:59 Intake Total 838 480 Balance 838 480 Intake: Oral 838 480 Other: Voiding Method Toilet # Voids 2 2 2 - Labs CBC & Chem 7: 10/26/22 14:13 10/27/22 05:40
[2022-10-29] MEDS ORDERED: DEXTROSE 50% SYRINGE 50 ML IVP PRN ×2 (17:09)
[2022-10-29 17:29] LABS: Glucose,Whole Blood 99 mg/dL (70-110)
[2022-10-29] MEDS: methylPREDNISolone SOD SUCCIN 1,000 MG in SODIUM CHLORIDE 0.9% 250 ML IVPB SCH (17:38)
[2022-10-29] MEDS: INSULIN ASPART (NovoLOG) 100 UNIT/ML VIAL SQ SCH ×2 (17:42→21:05)
--- NOTE | 2022-10-29 19:47 | EEG ---
ELECTROENCEPHALOGRAM REPORT PREAMBLE: This is a 37-year-old female with syncopal spell. This study is performed to evaluate for any epileptiform activity. EEG FINDINGS: This is a 21-channel digital EEG recorded with video component, utilizing 10/20 international system with referential and bipolar montages. Background consists of well developed, well regulated moderate voltage activity in 9 hertz alpha. Background is posterior dominant and reactive to eye opening and closing. Photic driving response was seen with some flash frequencies. Mild drowsiness was seen with appearance of bilaterally symmetric theta frequency rhythm. Deeper stages of sleep were not seen. Hyperventilation revealed no abnormalities. No focal or generalized epileptiform activity was seen. EKG showed tachycardia. IMPRESSION: This is a normal awake and drowsy EEG. No focal, lateralized or epileptiform activity was seen. EKG channel showed tachycardia. Clinical correlation recommended. RACHEL / BENITO: [id number] /
[2022-10-29 20:16] LABS: Glucose,Whole Blood 173 mg/dL (70-110)
[2022-10-29] MEDS ORDERED: MIRTAZAPINE 15 MG TAB PO PRN (21:00)
[2022-10-29] MEDS: lamoTRIgine 25 MG TAB PO SCH (21:01)
[2022-10-29] MEDS: lamoTRIgine 100 MG TAB PO SCH (21:01)
[2022-10-30 06:15] LABS: Glucose,Whole Blood 150 mg/dL (70-110)
[2022-10-30] MEDS: INSULIN ASPART (NovoLOG) 100 UNIT/ML VIAL SQ SCH ×4 (06:21→20:46)
[2022-10-30] MEDS: ACETAMINOPHEN TAB 325 MG TAB PO PRN (06:39)
[2022-10-30] MEDS: CYANOCOBALAMIN 1,000 MCG/ML 1 ML VIAL IM SCH (08:52)
[2022-10-30] MEDS: VENLAFAXINE HCL ER 150 MG CAP PO SCH (08:53)
[2022-10-30] MEDS: FOLIC ACID 1 MG TAB PO SCH (08:53)
--- NOTE | 2022-10-30 09:09 | P.PN ---
Subjective Progress Note Date: 10/29/22 Patient patient was seen for a follow-up. Patient denies any new neurological symptoms. Continues to have symptoms involving her right arm and right leg. Denies headache, double vision or loss of vision. Objective - Vital Signs Vital signs: Vital Signs Temp 98 F 10/29/22 12:54 Pulse 87 10/29/22 12:54 Resp 14 10/29/22 12:54 BP 96/63 10/29/22 12:54 Pulse Ox 98 10/29/22 12:54 FiO2 Intake & Output 10/28/22 10/29/22 10/29/22 18:59 06:59 18:59 Intake Total 838 480 Balance 838 480 Intake: Oral 838 480 Other: Voiding Method Toilet # Voids 2 2 2 - Exam Patient's mental status, speech and language function are normal. Cranial nerves II through XII are normal. 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 In the lower extremities hip flexion 4+5-bilaterally. Ankle dorsiflexion is normal 5/5. Sensory to touch is decreased in the right arm and right leg as compared to the left. Cerebellar function showed no ataxia for [id number] or [id number]-rb-[id number] testing. - Labs CBC & Chem 7: 10/26/22 14:13 10/27/22 05:40 Assessment and Plan Assessment: * Abnormal brain MRI with nonenhancing lesions in the periventricular white matter, rule out demyelinating disease like MS. * Vitamin B12 and folate deficiency * Syncopal spell, unclear etiology. Syncope versus seizure. * Cervicalgia * Binocular diplopia, that does not resolve with closing one or the other eye. Appears functional pattern. * Anxiety disorder * Bipolar disorder. * Tachycardia Plan: * MRI of the brain with and without contrast was performed, which revealed several white matter intracranial nonenhancing high signal foci suggestive of demyelinating disease. I personally reviewed MRI of the brain, and agree with the findings. There are 3 white matter lesions in the left periventricular region (posterior region), and one in the right frontal periventricular region. The most prominent lesion measuring 1 x 0.5 cm in the left posterior temporal periventricular white matter is concerning for demyelinating disease. No abnormal enhancement seen. No evidence of acute CVA. * MRI of the cervical spine without contrast revealed no abnormal signal in the cervical spinal cord. No spinal stenosis. * EEG was normal * 2-D echo showed low normal left ventricular systolic function with EF at 50%. Left atrial size is normal. Bubble study negative for any PFO. * Telemetric monitoring showing sinus tachycardia. No other arrhythmia. * TSH 3.48, and free T4 1.71. * B12 225, folate 6.0. Patient will be started on vitamin B12 and folate replacement. * Lyme titer negative, KAYDEN negative, MMA. Lamictal level 4.4. Recommendations: Although her numbness/tingling could be related to possible B12/folate deficiency/insufficiency, but her symptoms are focal, mainly involving the right side of the body which is unlikely related to vitamin deficiency. MRI of the brain revealed multiple (4) lesions, mainly on the left hemispheric region, which although not enhancing at this time, but still potentially can produce symptoms on the right side. Lesions and her clinical symptoms are concerning for multiple sclerosis. I had a prolonged discussion with the patient. She agreed to be started on Solu-Medrol 1 g IV PB daily for 3-5 days. Lumbar puncture to evaluate for oligoclonal bands, IgG index to evaluate for MS. Discussed with primary physician in detail.
[2022-10-30] MEDS: methylPREDNISolone SOD SUCCIN 1,000 MG in SODIUM CHLORIDE 0.9% 250 ML IVPB SCH (10:02)
[2022-10-30] MEDS ORDERED: CYCLOBENZAPRINE 10 MG TAB PO PRN (10:24)
[2022-10-30 12:21] LABS: Glucose,Whole Blood 135 mg/dL (70-110)
--- NOTE | 2022-10-30 12:40 | P.PAINCN ---
History of Present Illness - Reason for Consult Consult date: 10/30/22 - History of Present Illness This 37 years old female, was admitted to [facility] secondary to syncopal episode, and patient also complaining of severe numbness and tingling sensation mainly in the right side in the upper and lower extremity, patient was admitted for diagnostic study to rule out syncope versus seizure, and MRI of the brain showed possible demyelinating disease, also patient currently complaining of severe low back pain mainly in the right side would radiation to the right buttock, and she has some neck pain , which is close to constant increase with neck movement, her main pain problem currently in the right side low back area with radiation to the right buttock, showed a few sever e numbness and tingling sensation in the lower extremity more prominent on the right side, patient denies any history of head trauma , she reported that she was treated as an outpatient by the Dr. Paredes(neurologist ), for her neck pain R Past Medical History Past Medical History: No Reported History History of Any Multi-Drug Resistant Organisms: None Reported Past Surgical History: Section Past Anesthesia/Blood Transfusion Reactions: No Reported Reaction Past Psychological History: No Psychological Hx Reported Past Alcohol Use History: Rare Past Drug Use History: None Reported - Past Family History Mother Family Medical History: No Reported History Medications and Allergies Home Medications Medication Instructions Recorded Confirmed Type Atomoxetine HCl 25 mg PO BID 10/26/22 10/26/22 History Ferrous Sulfate [Slow Release Iron] 140 mg PO DAILY 10/26/22 10/26/22 History SUMAtriptan succinate [Imitrex] 25 mg PO BID PRN 10/26/22 10/26/22 History Venlafaxine HCl [Effexor XR] 150 mg PO DAILY 10/26/22 10/26/22 History hydrOXYzine HCL [Atarax] 10 mg PO TID PRN 10/26/22 10/26/22 History lamoTRIgine 200 mg PO HS 10/26/22 10/26/22 History lamoTRIgine [LaMICtal] 50 mg PO HS 10/26/22 10/26/22 History Allergies Allergy/AdvReac Type Severity Reaction Status Date / Time No Known Allergies Allergy Verified 10/26/22 17:18 Physical Exam Vitals: Vital Signs Temp Pulse Resp BP Pulse Ox 10/30/22 08:38 97 10/30/22 06:40 97.9 F 105 H 18 119/72 10/30/22 01:25 98.0 F 106 H 18 111/76 99 10/29/22 19:00 98.1 F 83 17 110/77 97 10/29/22 12:54 98 F 87 14 96/63 98 Intake and Output 10/29/22 10/30/22 10/30/22 22:59 06:59 14:59 Intake Total 240 118 Balance 240 118 Intake: Oral 240 118 Other: # Voids 2 1 Physical Examinations : -Constitutiona : Cooperative , not in acute distress . -HEENT : nech : supple , no Lymphadenopathy , normal thyroid size . : eyes : no ptosis , no icterus, no photophobia . - neurologic : Cranial nerve II to XII intact , no focal neurological deffecit . -psychatric : alert , oriented X 3 , appropriate affect , intact judgment and insight . -Lymphatic : no Lymphadenopathy . - musculoskeltal : Cervical Spine motor stregnth in the deltoid and biceps, normal right side , normal Left side motor stregnth biceps and the wrist extensors normal right side ,normal left side . motor stregnth in the triceps muscle . normal Right side , normal Left side Decrease sensation in the right upper extremity Lumber spine moter stegnth lower extremities ,thigh and legs 4-5/5 Right side , 5/5 Left side lumber facet Loading Test =positive Right , positive Left Range of motion of the lumbar spine Flexion 30 degrees, extension 10 degrees strait leg raising test = positive at 30 degree right side, negative on the left side Fabere test= positive Right , and positive LT . Sever tenderness over the Sacroiliac joint on the Right . Gaenslen test= positive right . Seated flexion test= positive right . Sacroiliac compression test= positive right side Results CBC & Chem 7: 10/26/22 14:13 10/27/22 05:40 Labs: Abnormal Lab Results - Last 24 Hours (Table) 10/29/22 10/30/22 Range/Units 20:14 06:14 POC Glucose (mg/dL) 173 H 150 H (70-110) mg/dL Comments: MRI of the brain= white matter enhancing lesions suggestive of demyelinating disease Assessment and Plan Plan: Assessment and plan 1-rule out multiple sclerosis. 2-syncopal episode versus seizure. 3-neck pain . 4-right sacroiliitis. Neurology service ordered lumbar punctures for diagnostic study we will do today. Patient had chronic neck pain and also currently she is complaining mostly of severe low back pain and lower extremity numbness on the right side, numbness could be secondary to demyelinating disease , currently patient complaining of severe low back pain with radiation to the right buttock area, and patient could benefit from a right sacroiliac joint steroid injection which can be done as an outpatient, we will perform lumbar puncture today, and the right sacroiliac joint will be done later Time with Patient: Less than 30 PQRS Measure Charge Sheet - Pain Location Head Non-Pharmacological Interventions: Darkened Room Pharmacological Interventions: PRN Medication PQRS Narrative: Smoking Status Current every day smoker Blood Pressure [Right Arm] 119/72 Blood Pressure 120/81 Pain Intensity [Head] 0 Pain Intensity [None] 8 Pain Intensity 0 Pain Scale Used Numeric (1 - 10) Scale Used Numeric (1 - 10) Home Medications: Ambulatory Orders Atomoxetine HCl 25 mg PO BID 10/26/22 Ferrous Sulfate [Slow Release Iron] 140 mg PO DAILY 10/26/22 SUMAtriptan succinate [Imitrex] 25 mg PO BID PRN 10/26/22 Venlafaxine HCl [Effexor XR] 150 mg PO DAILY 10/26/22 hydrOXYzine HCL [Atarax] 10 mg PO TID PRN 10/26/22 lamoTRIgine 200 mg PO HS 10/26/22 lamoTRIgine [LaMICtal] 50 mg PO HS 10/26/22
--- NOTE | 2022-10-30 13:25 | P.PCN ---
Date of Procedure: 10/30/22 Procedure(s) Performed: Preoperative diagnosis: Multiple sclerosis Post operative diagnoses: Multiple sclerosis Procedure= lumbar puncture Anesthesia= local anesthesia with lidocaine 1% 3 mL only Condition: stable Complication: none. Description of the procedure procedure risk and benefits discussed with the patient , consent signed. Patient and the procedure area placed in sitting position, back prepped with chlorhexidine 3 times been local infiltration of the skin and subcutaneous tissue with lidocaine 1% 3 mL for skin and subcu interstitial frustrations at L4 5 levels then 22-gauge Quincke-type needle advanced slowly at L4- 5 interlaminar space there was positive cerebrospinal fluid which was clear, no heme, no paresthesia ,total of 8 ML of clear cerebrospinal fluid collected in 4 different tubes 2 mL in each, then the needle removed and a Band-Aid applied and patient tolerated the procedure well without any complications.
--- NOTE | 2022-10-30 13:54 | P.PN ---
Subjective Progress Note Date: 10/30/22 Patient patient was seen for a follow-up. Patient states her right leg has been hurting her most likely, charley horse, cramping and it hurts rating 7/10. . Continues to have symptoms involving her right arm and right leg. Denies headache. Objective - Vital Signs Vital signs: Vital Signs Temp 97.9 F 10/30/22 06:40 Pulse 105 H 10/30/22 06:40 Resp 18 10/30/22 06:40 BP 119/72 10/30/22 06:40 Pulse Ox 97 10/30/22 08:38 FiO2 Intake & Output 10/29/22 10/30/22 10/30/22 18:59 06:59 18:59 Intake Total 720 118 Balance 720 118 Intake: Oral 720 118 Other: # Voids 2 1 - Exam Patient's mental status, speech and language function are normal. Cranial nerves II through XII are normal. 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 In the lower extremities hip flexion slightly weaker on the right as compared to left. Ankle dorsiflexion is normal 5/5. Sensory to touch is decreased in the right arm and right leg as compared to the left. Cerebellar function showed no ataxia for ylmr-ej-acym or [id number]-pv-vncf testing. Patient walked fairly stable, with no gait abnormality. She was walking slow. - Labs CBC & Chem 7: 10/26/22 14:13 10/27/22 05:40 Labs: Abnormal Lab Results - Last 24 Hours (Table) 10/29/22 10/30/22 10/30/22 Range/Units 20:14 06:14 12:20 POC Glucose (mg/dL) 173 H 150 H 135 H (70-110) mg/dL Assessment and Plan Assessment: * Abnormal brain MRI with nonenhancing lesions in the periventricular white matter, rule out demyelinating disease like MS. * Vitamin B12 and folate deficiency * Syncopal spell, unclear etiology. Syncope versus seizure. * Cervicalgia * Binocular diplopia, that does not resolve with closing one or the other eye. Appears functional pattern. * Anxiety disorder * Bipolar disorder. * Tachycardia Plan: * Although her numbness/tingling could be related to possible B12/folate deficiency/insufficiency, but her symptoms are focal, mainly involving the right side of the body which is unlikely related to vitamin deficiency. MRI of the brain revealed multiple (4) lesions, mainly on the left hemispheric region, which although not enhancing at this time, but still potentially can produce symptoms on the right side. Lesions and her clinical symptoms are concerning for multiple sclerosis. * Patient has started Solu-Medrol 1 g IV PB daily for 3-5 days. Today she is receiving the second dose. Tolerating medication well. * Await lumbar puncture. * MRI of the brain with and without contrast was performed, which revealed several white matter intracranial nonenhancing high signal foci suggestive of demyelinating disease. I personally reviewed MRI of the brain, and agree with the findings. There are 3 white matter lesions in the left periventricular region (posterior region), and one in the right frontal periventricular region. The most prominent lesion measuring 1 x 0.5 cm in the left posterior temporal periventricular white matter is concerning for demyelinating disease. No abnormal enhancement seen. No evidence of acute CVA. * MRI of the cervical spine without contrast revealed no abnormal signal in the cervical spinal cord. No spinal stenosis. * EEG was normal * 2-D echo showed low normal left ventricular systolic function with EF at 50%. Left atrial size is normal. Bubble study negative for any PFO. * Telemetric monitoring showing sinus tachycardia. No other arrhythmia. * TSH 3.48, and free T4 1.71. * B12 225, folate 6.0. Patient will be started on vitamin B12 and folate replacement. * Lyme titer negative, KAYDEN negative, MMA. Lamictal level 4.4.
--- NOTE | 2022-10-30 15:31 | P.PN ---
Subjective Progress Note Date: 10/30/22 Patient is a 37-year-old female with no known past medical history who presented to the ER via EMS from work. Per EMS patient had some difficulty grabbing her pen and then had a syncopal episode. After waking she was unable to speak. In the ER she underwent an extensive evaluation. On arrival her heart rate was 105 with the remainder of her vital signs were within normal limits. Initial laboratory analysis was remarkable for potassium of 3.1. CT head showed no acute process. She was given 2 mg of Ativan in the ER for some tremor-like activity. She was admitted for further monitoring. Neurology was consulted. The night after admission she had 2 more episodes where she started to have a he adache complaint of trouble swallowing, delayed speech with difficulties beginning. Patient was unable to open her mouth and had some jerking movements bilaterally but was still responding verbally. She was seen by the overnight physician who did not recommend any benzodiazepine treatment as this did not appear consistent with seizure-like activity. She again had one additional episode or she initially started with clear and appropriate speech and then and she began talking had some tremulous movements of her head that resolved with distraction. She was seen by neurology who recommended MRI brain. This was completed and demonstrated for different white matter changes. EEG was normal. Concerns for possible multiple sclerosis and patient was started on IV steroids. Patient seen and examined at bedside. Perioral tingling has resolved. Blurry vision has resolved. She denies slurred speech or confusion. She continues to reports RLE tingling, numbness and weakness. General: nontoxic, no distress, appears at stated age Derm: warm, dry Head: atraumatic, normocephalic, symmetric Eyes: EOMI, no lid lag, anicteric sclera Mouth: no lip lesion, mucus membranes moist Cardiovascular: S1S2 reg, no murmur Lungs: CTA bilateral, no rhonchi, no rales , no accessory muscle use Ext: no gross muscle atrophy, no edema, no contractures Neuro: RLE 4/5 strength with 5/5 in all other extremities, speech clear and fluent, no tremors Psych: Alert, oriented, appropriate affect #Episode of unresponsiveness associated with right sided tingling, difficulty with speech, and weakness--probable new multiple sclerosis. -MRI brain with white matter changes. -Seizure precautions -EEG without signs of epileptiform activity -Neurology recs appreciated: Concern for possible MS. LP performed today. Will start IV steroids with plan for 3 days with possible need to continue for 5 days. -Today is day 2 of steroids -Echocardiogram EF 50% -Telemetry -UDS with benzodiazepine -Lamictal level normal #Relative B12 and folic acid deficiency -Agree with supplementation -Plan for sublingual B12 on discharge #Migraine headaches -As needed Imitrex #Neuropathy -Outpatient follow-up #Depression and anxiety - Effexor, Lamictal, and hydroxyzine - Psych recs appreciated Resolved: Hypokalemia Transitioned to inpatient status as concerns are for possible new onset MS with flare requiring IV steroids. Objective - Vital Signs Vital signs: Vital Signs Temp 97.9 F 10/30/22 06:40 Pulse 105 H 10/30/22 06:40 Resp 18 10/30/22 06:40 BP 119/72 10/30/22 06:40 Pulse Ox 97 10/30/22 08:38 FiO2 Intake & Output 10/29/22 10/30/22 10/30/22 18:59 06:59 18:59 Intake Total 720 118 Balance 720 118 Intake: Oral 720 118 Other: # Voids 2 1 - Labs CBC & Chem 7: 10/26/22 14:13 10/27/22 05:40 Labs: Abnormal Lab Results - Last 24 Hours (Table) 10/29/22 10/30/22 10/30/22 Range/Units 20:14 06:14 12:20 POC Glucose (mg/dL) 173 H 150 H 135 H (70-110) mg/dL
[2022-10-30 17:21] LABS: Glucose,CSF 103 mg/dL (40-70); Total Protein,CSF 28 mg/dL (12-60)
[2022-10-30 17:54] LABS: Glucose,Whole Blood 266 mg/dL (70-110)
[2022-10-30] MEDS: lamoTRIgine 100 MG TAB PO SCH (20:24)
[2022-10-30] MEDS: lamoTRIgine 25 MG TAB PO SCH (20:25)
[2022-10-30 20:28] LABS: Glucose,Whole Blood 207 mg/dL (70-110)
[2022-10-30 22:01] LABS: Appearance,CSF Clear; CSF Tube Number 3; Nucleated Cells, CSF 0 u/L (0-5); Red Blood Cell,CSF 475 u/L (0-10)
[2022-10-30 22:02] LABS: Red Blood Cell, CSF Crenated 0 %; Red Blood Cell, CSF Fresh 100 %
[2022-10-31 02:59] VITALS: RESP 16
[2022-10-31 06:07] LABS: Glucose,Whole Blood 120 mg/dL (70-110)
[2022-10-31 08:48] VITALS: BP 112/78; PULSE 94; TEMP 98.4
[2022-10-31] MEDS: INSULIN ASPART (NovoLOG) 100 UNIT/ML VIAL SQ SCH ×2 (08:50→12:46)
[2022-10-31] MEDS: methylPREDNISolone SOD SUCCIN 1,000 MG in SODIUM CHLORIDE 0.9% 250 ML IVPB SCH (09:06)
[2022-10-31] MEDS: FOLIC ACID 1 MG TAB PO SCH (09:07)
[2022-10-31] MEDS: VENLAFAXINE HCL ER 150 MG CAP PO SCH (09:07)
[2022-10-31] MEDS: CYANOCOBALAMIN 1,000 MCG/ML 1 ML VIAL IM SCH (09:07)
[2022-10-31] MEDS ORDERED: GABAPENTIN 100 MG CAP PO SCH (11:00)
[2022-10-31 12:22] LABS: Glucose,Whole Blood 200 mg/dL (70-110)
--- NOTE | 2022-10-31 14:56 | P.DS ---
Providers Date of admission: 10/29/22 12:13 Expected date of discharge: 10/31/22 Attending physician: Juanita Trammell DO Consults: 10/26/22 19:08 Consult Physician Routine Consulting Provider: Earl Lazaro Consult Reason/Comments: altered mentaiton, possible post ictal state Do you want consulting provider notified?: Yes 10/28/22 08:04 Consult Physician Routine Consulting Provider: Trent De Souza Consult Reason/Comments: Conversion disorder Do you want consulting provider notified?: Yes Primary care physician: [place] Course: Patient is a 37-year-old female with no known past medical history who presented to the ER via EMS from work. Per EMS patient had some difficulty grabbing her pen and then had a syncopal episode. After waking she was unable to speak. In the ER she underwent an extensive evaluation. On arrival her heart rate was 105 with the remainder of her vital signs were within normal limits. Initial laboratory analysis was remarkable for potassium of 3.1. CT head showed no acute process. She was given 2 mg of Ativan in the ER for some tremor-like activity. She was admitted for further monitoring. Neurology was consulted. The night after admission she had 2 more episodes where she started to have a headache complaint of trouble swallowing, delayed speech with difficulties beginning. Patient was unable to open her mouth and had some jerking movements bilaterally but was still responding verbally. She was seen by the overnight physician who did not recommend any benzodiazepine treatment as this did not appear consistent with seizure-like activity. She again had one additional episode or she initially started with clear and appropriate speech and then and she began talking had some tremulous movements of her head that resolved with distraction. She was seen by neurology who recommended MRI brain. This was completed and demonstrated for different white matter changes. EEG was normal. Concerns for possible multiple sclerosis and patient was started on IV steroids. She completed 3 days of IV Solu-Medrol which improved her symptoms. Patient seen and examined at bedside. Her perioral tingling has resolved. Patient complains of right lower extremity numbness. Patient states that her weakness has improved. States that she would like to go home. Pertinent studies include brain CT, chest x-ray, brain MRI, EEG, echocardiogram Pertinent procedures include lumbar puncture General: nontoxic, no distress, appears at stated age Derm: warm, dry Head: atraumatic, normocephalic, symmetric Eyes: EOMI, no lid lag, anicteric sclera Mouth: no lip lesion, mucus membranes moist Cardiovascular: S1S2 reg, no murmur Lungs: CTA bilateral, no rhonchi, no rales , no accessory muscle use Ext: no gross muscle atrophy, no edema, no contractures Neuro: RLE 4/5 strength with 5/5 in all other extremities, speech clear and fluent, no tremors Psych: Alert, oriented, appropriate affect Discharge diagnosis: Episode of unresponsiveness associated with right sided tingling, difficulty with speech, and weakness--probable new multiple sclerosis. Relative B12 and folic acid deficiency Migraine headaches Neuropathy Depression and anxiety Resolved: Hypokalemia Patient will be discharged with the following instructions: Take B12 1000 mcg daily. Recheck B12 levels in 6-8 weeks Follow up with your PCP within 1-2 days of discharge. Follow up with Dr. Fulton on Saturday. Note to Dr. Fulton: Please follow up with lumbar puncture results. Take Prednisone as follows: 50 mg PO QD x 5 days, followed by 40 mg PO QD x 5 days, followed by 30 mg PO QD x 5 days, followed by 20 mg PO QD x 5 days, followed by 10 mg PO QD x 5 days. Come back to the ED for worsening of your symptoms, slurred speech, blurry visio n, confusion. The case was discussed with Dr. Lazaro who recommended a slow taper of prednisone starting at 50 mg by mouth daily for 5 days. She has an appointment with her neurologist Dr. Paredes on Saturday. She will need to follow-up with the results of her lumbar puncture with Dr. Paredes. This complex discharge took 40 minutes to complete. Patient Condition at Discharge: Stable Plan - Discharge Summary Discharge Rx Participant: No New Discharge Prescriptions: New Folic Acid 1 mg PO DAILY #30 tab Gabapentin [Neurontin] 200 mg PO BID #120 cap Cyanocobalamin (Vitamin B-12) [Vitamin B-12] 1,000 mcg PO DAILY #30 tablet Cyclobenzaprine [Flexeril] 10 mg PO BID PRN #30 tab PRN Reason: Muscle Spasm predniSONE See Taper PO DIRECTED #75 tab Continue Venlafaxine HCl [Effexor XR] 150 mg PO DAILY SUMAtriptan succinate [Imitrex] 25 mg PO BID PRN PRN Reason: Migraine Headache Ferrous Sulfate [Slow Release Iron] 140 mg PO DAILY lamoTRIgine [LaMICtal] 50 mg PO HS hydrOXYzine HCL [Atarax] 10 mg PO TID PRN PRN Reason: Anxiety lamoTRIgine 200 mg PO HS Atomoxetine HCl 25 mg PO BID Discharge Medication List Atomoxetine HCl 25 mg PO BID 10/26/22 [History] Ferrous Sulfate [Slow Release Iron] 140 mg PO DAILY 10/26/22 [History] SUMAtriptan succinate [Imitrex] 25 mg PO BID PRN 10/26/22 [History] Venlafaxine HCl [Effexor XR] 150 mg PO DAILY 10/26/22 [History] hydrOXYzine HCL [Atarax] 10 mg PO TID PRN 10/26/22 [History] lamoTRIgine 200 mg PO HS 10/26/22 [History] lamoTRIgine [LaMICtal] 50 mg PO HS 10/26/22 [History] Cyanocobalamin (Vitamin B-12) [Vitamin B-12] 1,000 mcg PO DAILY #30 tablet 10/31/22 [Rx] Cyclobenzaprine [Flexeril] 10 mg PO BID PRN #30 tab 10/31/22 [Rx] Folic Acid 1 mg PO DAILY #30 tab 10/31/22 [Rx] Gabapentin [Neurontin] 200 mg PO BID #120 cap 10/31/22 [Rx] predniSONE See Taper PO DIRECTED #75 tab 10/31/22 [Rx] Follow up Appointment(s)/Referral(s): Peter Paredes MD [Family Provider] - 1 Week Carol Brown [Primary Care Provider] - 1-2 days Activity/Diet/Wound Care/Special Instructions: Activity: [] Diet: [] Wound Care: [] Special Instructions: B12 1000 mcg daily Recheck B12 levels in 6-8 weeks Follow up with your PCP within 1-2 days of discharge. Follow up with Dr. Fulton on Saturday. Note to Dr. Fulton: Please follow up with lumbar puncture results. Take Prednisone as follows: 50 mg PO QD x 5 days, followed by 40 mg PO QD x 5 days, followed by 30 mg PO QD x 5 days, followed by 20 mg PO QD x 5 days, followed by 10 mg PO QD x 5 days. Come back to the ED for worsening of your symptoms, slurred speech, blurry vision, confusion. Discharge/Stand Alone Forms: Marilyn Pain/Melissamer Instructions Discharge Disposition: HOME SELF-CARE
== END 2022-10-31 16:22 | disposition home or self-care (01) | DRG 60 ==
LOC: EC 14:00 → 6NMEDSUR 16:20 → OBSVTOIN 10-29 12:13
PROVIDERS: ADMIT Internal Medicine; ATTEND Internal Medicine
PROC: 009U3ZX Drainage of Spinal Canal, Percutaneous Approach, Diagnostic (ICD-10-PCS; principal; 2022-10-30 13:00)
DX: G35 Multiple sclerosis (principal); I34.0 Nonrheumatic mitral (valve) insufficiency; E53.8 Deficiency of other specified B group vitamins; R25.1 Tremor, unspecified; R00.0 Tachycardia, unspecified; R55 Syncope and collapse; M54.2 Cervicalgia; G43.909 Migraine, unspecified, not intractable, without status migrainosus; G57.93 Unspecified mononeuropathy of bilateral lower limbs; H57.04 Mydriasis; E87.6 Hypokalemia; R13.10 Dysphagia, unspecified; R47.89 Other speech disturbances; M62.831 Muscle spasm of calf; M46.1 Sacroiliitis, not elsewhere classified; F17.210 Nicotine dependence, cigarettes, uncomplicated; H53.8 Other visual disturbances; F43.23 Adjustment disorder with mixed anxiety and depressed mood; F41.1 Generalized anxiety disorder; R07.89 Other chest pain; Z28.310 Unvaccinated for COVID-19; Z79.899 Other long term (current) drug therapy; Z81.8 Family history of other mental and behavioral disorders; Z63.6 Dependent relative needing care at home
CPT/HCPCS: 36415; 62270; 70450; 70553; 71046; 72141; 80048; 80053; 80175; 80306; 80320; 82040; 82042; 82140; 82607; 82746; 82784; 82945; 83036; 83735; 83873; 83916; 83921; 84157; 84439; 84443; 84484; 85025; 85610; 85730; 86038; 86618; 87070; 87205; 89050; 93005; 93306; 94760; 95816; 96374; 96376; 99285

== ENCOUNTER 2022-12-29 16:50 | Emergency (ER) | payer BC, OTHER ==
[2022-12-29 16:59] VITALS: TEMP 97
[2022-12-29] MEDS ORDERED: SODIUM CHLORIDE 0.9% 1,000 ML IV STA (16:59)
[2022-12-29] MEDS ORDERED: levETIRAcetam IV 1,000 MG in SALINE 1 100ML.BAG IVPB STA (17:04)
[2022-12-29] MEDS ORDERED: ONDANSETRON 4 MG/2 ML VIAL IM STA (17:15)
[2022-12-29 17:17] LABS: Basophils % (A) 1 %; Eosinophils # (A) 0.1 k/uL (0-0.7); Eosinophils % (A) 1 %; HCT 40.5 % (34.0-46.0); HGB 13.9 gm/dL (11.4-16.0); Lymphocytes # (A) 1.8 k/uL (1.0-4.8); Lymphocytes % (A) 25 %; MCH 29.2 pg (25.0-35.0); MCHC 34.4 g/dL (31.0-37.0); MCV 84.9 fL (80.0-100.0); Mean Platelet Volume 6.7; Monocytes # (A) 0.4 k/uL (0-1.0); Monocytes % (A) 6 %; Neutrophils # (A) 4.9 k/uL (1.3-7.7); Neutrophils % (A) 67 %; Platelet Count 298 k/uL (150-450); RBC 4.77 m/uL (3.80-5.40); RDW 13.2 % (11.5-15.5); WBC 7.3 k/uL (3.8-10.6)
--- NOTE | 2022-12-29 17:26 | ED ---
Seizure HPI - General Chief Complaint: Seizure Stated Complaint: seizure Time Seen by Provider: 12/29/22 16:50 Source: patient, RN notes reviewed Mode of arrival: EMS Limitations: no limitations - History of Present Illness Initial Comments: 37-year-old female who currently started having seizure-like activity 2 months ago who was brought in by EMS today after developing seizure like activity over a 10+ minute period. She had an episode nausea vomiting after she went down from the seizure no reports of any trauma however. Patient is currently unde rgoing a workup for seizure disorder. And per paramedics. Be more upper extremity with eyes rolling back type of activity I did discuss this with her he states it's a full body type seizure. She had what appeared be a prolonged postictal state he was given IV Versed by paramedics. No reports of fevers chills nausea vomiting sweats or other symptoms at this time currently not on any seizure medications MD Complaint: seizure - Related Data Home Medications Medication Instructions Recorded Confirmed Ferrous Sulfate [Slow Release Iron] 140 mg PO DAILY 10/26/22 12/29/22 SUMAtriptan succinate [Imitrex] 25 mg PO BID PRN 10/26/22 12/29/22 hydrOXYzine HCL [Atarax] 10 mg PO TID PRN 10/26/22 12/29/22 lamoTRIgine 200 mg PO HS 10/26/22 12/29/22 lamoTRIgine [LaMICtal] 50 mg PO HS 10/26/22 12/29/22 Cyanocobalamin [Vitamin B-12] 1,000 mcg PO DAILY 12/29/22 12/29/22 Cyclobenzaprine [Flexeril] 10 mg PO BID PRN 12/29/22 12/29/22 FLUoxetine HCL [PROzac] 1 dose PO DIRECTED 12/29/22 12/29/22 modafiniL [Provigil] 100 mg PO DAILY 12/29/22 12/29/22 Allergies Allergy/AdvReac Type Severity Reaction Status Date / Time No Known Allergies Allergy Verified 12/29/22 17:44 Review of Systems ROS Statement: Those systems with pertinent positive or pertinent negative responses have been documented in the HPI. ROS Other: All systems not noted in ROS Statement are negative. Limitations: ROS unobtainable due to patients medical condition Past Medical History Past Medical History: No Reported History, Seizure Disorder History of Any Multi-Drug Resistant Organisms: None Reported Past Surgical History: Section Past Anesthesia/Blood Transfusion Reactions: No Reported Reaction Past Psychological History: No Psychological Hx Reported Past Alcohol Use History: Rare Past Drug Use History: None Reported - Past Family History Mother Family Medical History: No Reported History General Exam - General Exam Comments Initial Comments: This is a well-developed well-nourished lethargic patient who does appear to be postictal. Limitations: no limitations General appearance: lethargic Head exam: Present: atraumatic, normocephalic, normal inspection Eye exam: Present: normal appearance, PERRL, EOMI. Absent: scleral icterus, conjunctival injection, periorbital swelling ENT exam: Present: normal exam, mucous membranes moist Neck exam: Present: normal inspection, full ROM, other (No stridor JVD or bruits). Absent: tenderness, meningismus, lymphadenopathy Respiratory exam: Present: normal lung sounds bilaterally. Absent: respiratory distress, wheezes, rales, rhonchi, stridor Cardiovascular Exam: Present: normal rhythm, tachycardia, normal heart sounds. Absent: systolic murmur, diastolic murmur, rubs, gallop, clicks GI/Abdominal exam: Present: soft, normal bowel sounds. Absent: distended, tenderness, guarding, rebound, rigid Extremities exam: Present: normal inspection, full ROM, normal capillary refill. Absent: tenderness, pedal edema, joint swelling, calf tenderness Back exam: Present: normal inspection Neurological exam: Present: alert, altered, CN II-XII intact. Absent: motor sensory deficit Psychiatric exam: Present: normal affect, normal mood Skin exam: Present: warm, dry, intact, normal color. Absent: rash Course Vital Signs 12/29/22 12/29/22 12/29/22 16:53 17:44 17:47 Temperature 97 F L Pulse Rate 105 H 106 H 105 H Respiratory 16 14 14 Rate Blood Pressure 127/85 140/60 126/90 O2 Sat by Pulse 98 100 100 Oximetry 12/29/22 12/29/22 12/29/22 18:11 18:59 19:27 Temperature Pulse Rate 100 100 106 H Respiratory 14 14 14 Rate Blood Pressure 133/90 118/83 124/88 O2 Sat by Pulse 100 100 100 Oximetry Medical Decision Making - Medical Decision Making I did reevaluate patient several occasions no evidence of seizure activity seen received IV Keppra. He does appear to be postictal at this time. Vital signs are maintained area did discuss findings with the patient's . I also discussed case with is will be admitted with neurology consultationWas pt. sent in by a medical professional or institution (KINA Meade, LOGGING TRACTOR OPERATOR, urgent care, hospital, or residential...) When possible be specific @ -No Did you speak to anyone other than the patient for history (EMS, parent, family, police, friend...)? What history was obtained from this source @ -EMS Did you review nursing and triage notes (agree or disagree)? Why? @ -I reviewed and agree with nursing and triage notes Were old charts reviewed (outside hosp., previous admission, EMS record, old EKG, old radiological studies, urgent care reports/EKG's, residential records)? Report findings @ -No old charts were reviewed Differential Diagnosis (chest pain, altered mental status, abdominal pain women, abdominal pain men, vaginal bleeding, weakness, fever, dyspnea, syncope, headache, dizziness, GI bleed, back pain, seizure, CVA, palpatations, mental health)? @ -not applicable EKG interpreted by me (3pts min.). @ -As above X-rays interpreted by me (1pt min.). @ -Yes CT interpreted by me (1pt min.). @ -S U/S interpreted by me (1pt. min.). @ -None done What testing was considered but not performed or refused? (CT, X-rays, U/S, labs)? Why? @ -None What meds were considered but not given or refused? Why? @ -None Did you discuss the management of the patient with other professionals (professionals i.e. KINA Meade, LOGGING TRACTOR OPERATOR, lab, RT, psych nurse, addiction social worker, headstart teacher, teacher, border patrol officer, child support case officer)? Give summary @ -No Was smoking cessation discussed for >3mins.? @ -No Was critical care preformed (if so, how long)? @ -No Were there social determinants of health that impacted care today? How? (Homelessness, low income, unemployed, alcoholism, drug addiction, transportation, low edu. Level, literacy, decrease access to med. care, intermediate, rehab)? @ -No Was there de-escalation of care discussed even if they declined (Discuss DNR or withdrawal of care, Hospice)? DNR status @ -No What co-morbidities impacted this encounter? (DM, HTN, Smoking, COPD, CAD, Cancer, CVA, ARF, Chemo, Hep., AIDS, mental health diagnosis, sleep apnea, morbid obesity)? @ -None Was patient admitted / discharged? Hospital course, mention meds given and route, prescriptions, significant lab abnormalities, going to OR and other pertinent info. @ -hospital course admitted Undiagnosed new problem with uncertain prognosis? @ -No Drug Therapy requiring intensive monitoring for toxicity (Heparin, Nitro, Insulin, Cardizem)? @ -No Were any procedures done? @ -No Diagnosis/symptom? @ -default Acute, or Chronic, or Acute on Chronic? @ -default Uncomplicated (without systemic symptoms) or Complicated (systemic symptoms)? @ -default Side effects of treatment? @ -No Exacerbation, Progression, or Severe Exacerbation? @ -Denser beige Poses a threat to life or bodily function? How? (Chest pain, [place], MT, pneumonia, PE, COPD, DKA, ARF, appy, cholecystitis, CVA, Diverticulitis, Homicidal, Suicidal, threat to staff... and all critical care pts) @ -No - Lab Data Result diagrams: 12/29/22 17:03 12/29/22 17:03 Lab Results 12/29/22 12/29/22 12/29/22 Range/Units 17:03 17:03 17:03 WBC 7.3 (3.8-10.6) k/uL RBC 4.77 (3.80-5.40) m/uL Hgb 13.9 (11.4-16.0) gm/dL Hct 40.5 (34.0-46.0) % MCV 84.9 (80.0-100.0) fL MCH 29.2 (25.0-35.0) pg MCHC 34.4 (31.0-37.0) g/dL RDW 13.2 (11.5-15.5) % Plt Count 298 (150-450) k/uL MPV 6.7 Neutrophils % 67 % Lymphocytes % 25 % Monocytes % 6 % Eosinophils % 1 % Basophils % 1 % Neutrophils # 4.9 (1.3-7.7) k/uL Lymphocytes # 1.8 (1.0-4.8) k/uL Monocytes # 0.4 (0-1.0) k/uL Eosinophils # 0.1 (0-0.7) k/uL Basophils # 0.0 (0-0.2) k/uL Sodium 137 (137-145) mmol/L Potassium 4.4 (3.5-5.1) mmol/L Chloride 101 (98-107) mmol/L Carbon Dioxide 25 (22-30) mmol/L Anion Gap 11 mmol/L BUN 12 (7-17) mg/dL Creatinine 0.61 (0.52-1.04) mg/dL Est GFR (CKD-EPI)AfAm >90 (>60 ml/min/1.73 sqM) Est GFR (CKD-EPI)NonAf >90 (>60 ml/min/1.73 sqM) Glucose 101 H (74-99) mg/dL Calcium 9.0 (8.4-10.2) mg/dL Magnesium 2.0 (1.6-2.3) mg/dL Total Bilirubin 0.3 (0.2-1.3) mg/dL AST 21 (14-36) U/L ALT 19 (4-34) U/L Alkaline Phosphatase 66 (38-126) U/L Total Protein 6.7 (6.3-8.2) g/dL Albumin 4.4 (3.5-5.0) g/dL Urine Color Yellow Urine Appearance Clear (Clear) Urine pH 6.0 (5.0-8.0) Ur Specific [place] 1.027 (1.001-1.035) Urine Protein 1+ H (Negative) Urine Glucose (UA) Negative (Negative) Urine Ketones 1+ H (Negative) Urine Blood Negative (Negative) Urine Nitrite Negative (Negative) Urine Bilirubin Negative (Negative) Urine Urobilinogen 2.0 (<2.0) mg/dL Ur Leukocyte Esterase Negative (Negative) Urine RBC 7 H (0-5) /hpf Urine WBC 2 (0-5) /hpf Ur Squamous Epith Cells 1 (0-4) /hpf Hyaline Casts 1 (0-2) /lpf Urine Mucus Many H (None) /hpf Urine HCG, Qual (Not Detectd) Urine Opiates Screen Not Detected (NotDetected) Ur Oxycodone Screen Not Detected (NotDetected) Urine Methadone Screen Not Detected (NotDetected) Ur Propoxyphene Screen Not Detected (NotDetected) Ur Barbiturates Screen Not Detected (NotDetected) U Tricyclic Antidepress Not Detected (NotDetected) Ur Phencyclidine Scrn Not Detected (NotDetected) Ur Amphetamines Screen Not Detected (NotDetected) U Methamphetamines Scrn Not Detected (NotDetected) U Benzodiazepines Scrn Detected H (NotDetected) Urine Cocaine Screen Not Detected (NotDetected) U Marijuana (THC) Screen Not Detected (NotDetected) Serum Alcohol <10 mg/dL Influenza Type A (PCR) (Not Detectd) Influenza Type B (PCR) (Not Detectd) RSV (PCR) (Not Detectd) SARS-CoV-2 (PCR) (Not Detectd) 12/29/22 12/29/22 Range/Units 17:03 17:03 WBC (3.8-10.6) k/uL RBC (3.80-5.40) m/uL Hgb (11.4-16.0) gm/dL Hct (34.0-46.0) % MCV (80.0-100.0) fL MCH (25.0-35.0) pg MCHC (31.0-37.0) g/dL RDW (11.5-15.5) % Plt Count (150-450) k/uL MPV Neutrophils % % Lymphocytes % % Monocytes % % Eosinophils % % Basophils % % Neutrophils # (1.3-7.7) k/uL Lymphocytes # (1.0-4.8) k/uL Monocytes # (0-1.0) k/uL Eosinophils # (0-0.7) k/uL Basophils # (0-0.2) k/uL Sodium (137-145) mmol/L Potassium (3.5-5.1) mmol/L Chloride (98-107) mmol/L Carbon Dioxide (22-30) mmol/L Anion Gap mmol/L BUN (7-17) mg/dL Creatinine (0.52-1.04) mg/dL Est GFR (CKD-EPI)AfAm (>60 ml/min/1.73 sqM) Est GFR (CKD-EPI)NonAf (>60 ml/min/1.73 sqM) Glucose (74-99) mg/dL Calcium (8.4-10.2) mg/dL Magnesium (1.6-2.3) mg/dL Total Bilirubin (0.2-1.3) mg/dL AST (14-36) U/L ALT (4-34) U/L Alkaline Phosphatase (38-126) U/L Total Protein (6.3-8.2) g/dL Albumin (3.5-5.0) g/dL Urine Color Urine Appearance (Clear) Urine pH (5.0-8.0) Ur Specific [place] (1.001-1.035) Urine Protein (Negative) Urine Glucose (UA) (Negative) Urine Ketones (Negative) Urine Blood (Negative) Urine Nitrite (Negative) Urine Bilirubin (Negative) Urine Urobilinogen (<2.0) mg/dL Ur Leukocyte Esterase (Negative) Urine RBC (0-5) /hpf Urine WBC (0-5) /hpf Ur Squamous Epith Cells (0-4) /hpf Hyaline Casts (0-2) /lpf Urine Mucus (None) /hpf Urine HCG, Qual Not Detected (Not Detectd) Urine Opiates Screen (NotDetected) Ur Oxycodone Screen (NotDetected) Urine Methadone Screen (NotDetected) Ur Propoxyphene Screen (NotDetected) Ur Barbiturates Screen (NotDetected) U Tricyclic Antidepress (NotDetected) Ur Phencyclidine Scrn (NotDetected) Ur Amphetamines Screen (NotDetected) U Methamphetamines Scrn (NotDetected) U Benzodiazepines Scrn (NotDetected) Urine Cocaine Screen (NotDetected) U Marijuana (THC) Screen (NotDetected) Serum Alcohol mg/dL Influenza Type A (PCR) Not Detected (Not Detectd) Influenza Type B (PCR) Not Detected (Not Detectd) RSV (PCR) Not Detected (Not Detectd) SARS-CoV-2 (PCR) Not Detected (Not Detectd) - EKG Data -: EKG Interpreted by Ut EKG Comments: EKG interpreted by me shows a sinus tachycardia with a short GA interval rate was 109. Interval 118 QRS duration 80 QT since QTC 332/396 possible left atrial enlargement. - Radiology Data Interpreted by me: MG interpreted by me no acute process seen on CAT scan or x-ray. Disposition Clinical Impression: Seizure, Post-ictal state Disposition: ADMITTED IP TO THIS HOSP Condition: Fair Referrals: Carol Brown [Primary Care Provider] - 1-2 days Decision Date: 12/29/22 Decision Time: 19:53
[2022-12-29 17:40] LABS: Appearance,Urine Clear (Clear); Bilirubin,Urine Negative (Negative); Blood,Urine Negative (Negative); Color,Urine Yellow; Glucose,Urine (UA) Negative (Negative); Hyaline Casts,Urine 1 /lpf (0-2); Ketones,Urine 1+ (Negative); Leukocyte Esterase,Urine Negative (Negative); Mucus,Urine Many /hpf; Nitrite,Urine Negative (Negative); Protein,Urine 1+ (Negative); RBC,Urine 7 /hpf (0-5); Specific Gravity,Urine 1.027 (1.001-1.035); Squamous Epithelial Cell,Urine 1 /hpf (0-4); WBC,Urine 2 /hpf (0-5)
[2022-12-29 17:41] LABS: ALT 19 U/L (4-34); AST 21 U/L (14-36); African American GFR (CKD) >90 (>60 ml/min/1.73 sqM); Albumin 4.4 g/dL (3.5-5.0); Alcohol <10 mg/dL; Alkaline Phosphatase 66 U/L (38-126); Anion Gap 11 mmol/L; Blood Urea Nitrogen 12 mg/dL (7-17); Carbon Dioxide 25 mmol/L (22-30); Chloride 101 mmol/L (98-107); Glucose 101 mg/dL (74-99); Non-African American GFR(CKD) >90 (>60 ml/min/1.73 sqM); Potassium 4.4 mmol/L (3.5-5.1); Sodium 137 mmol/L (137-145); Total Bilirubin 0.3 mg/dL (0.2-1.3); Total Protein 6.7 g/dL (6.3-8.2)
[2022-12-29 17:52] LABS: Amphetamine Screen,Urine Not Detected (NotDetected); Barbiturate Screen,Urine Not Detected (NotDetected); Benzodiazepines Screen,Urine Detected (NotDetected); Cocaine Screen,Urine Not Detected (NotDetected); Methadone Screen, Urine Not Detected (NotDetected); Opiate Screen,Urine Not Detected (NotDetected); Oxycodone Screen, Urine Not Detected (NotDetected); Phencyclidine Screen,Urine Not Detected (NotDetected); Tricyclic Antidepressant,Urine Not Detected (NotDetected); Urn Cannabinoid Scrn Not Detected (NotDetected)
--- NOTE | 2022-12-29 18:35 | CT ---
EXAMINATION TYPE: CT brain wo con CT DLP: 1232.4 mGycm, Automated exposure control for dose reduction was used. DATE OF EXAM: 12/29/2022 5:41 PM COMPARISON: MRI brain 10/27/2022, CT brain 10/26/2022. CLINICAL INDICATION:Female, 37 years old with history of seizure activity, Seizure activity. TECHNIQUE: Brain: Axial CT images of the brain were obtained with coronal and sagittal reformats created and rev iewed. Contrast used: None. Oral contrast used: None. FINDINGS: Motion artifact present. Brain: Extra-axial spaces: No abnormal extra-axial fluid collections. Ventricular system: Within normal limits Cerebral parenchyma: No acute intraparenchymal hemorrhage or mass effect. The agustin-white junction is well differentiated. Cerebellum: Unremarkable. Mass effect: No evidence of midline shift. Intracranial vasculature: unremarkable Soft tissues: Normal. Calvarium/osseous structures: No depressed skull fracture. Paranasal sinuses and mastoid air cells: Mild scattered paranasal sinus disease. Visualized orbits: Orbital contents are intact. IMPRESSION: No acute intracranial process.
--- NOTE | 2022-12-29 18:59 | XR ---
EXAMINATION TYPE: XR chest 1V portable DATE OF EXAM: 12/29/2022 6:55 PM COMPARISON: Chest x-ray 10/26/2022 TECHNIQUE: XR chest 1V portable . CLINICAL INDICATION:Female, 37 years old with history of Seizure; FINDINGS: Lungs/Pleura: There is no evidence of pleural effusion, focal consolidation, or pneumothorax. Pulmonary vascularity: Unremarkable. Heart/mediastinum: Cardiomediastinal silhouette is unremarkable. Musculoskeletal: No acute osseous pathology. IMPRESSION: No acute cardiopulmonary disease/process.
[2022-12-29] MEDS ORDERED: ONDANSETRON 4 MG/2 ML VIAL IVP PRN (19:53)
[2022-12-29] MEDS ORDERED: NALOXONE 0.4 MG/ML 1 ML VIAL IV PRN (19:53)
[2022-12-29] MEDS ORDERED: SODIUM CHLORIDE 0.9% 1,000 ML IV SCH (20:00)
[2022-12-29] MEDS ORDERED: LORazepam 2 MG/ML INJ IM STA (20:37)
--- NOTE | 2022-12-29 21:12 | ED ---
Medical Decision Making - Medical Decision Making Patient was originally be admitted at this facility but she was having what appear to be recurrent seizures in dust evidence of status epilepticus. She did respond to IV Ativan she was having activity consistent with a seizure with left lateral gaze but no actual extremity shaking. Concern for status and the need for 24-hour EEG monitoring. I did discuss findings with the patient and family members. Also Dr. Zhong at [facility] who is agreed to accept the patient transfer. Patient be transferred by EMS. She currently is awake and lethargic but does respond to questioning no evidence of a seizure-like activity at this time. - Lab Data Result diagrams: 12/29/22 17:03 12/29/22 17:03 Lab Results 12/29/22 12/29/22 12/29/22 Range/Units 17:03 17:03 17:03 WBC 7.3 (3.8-10.6) k/uL RBC 4.77 (3.80-5.40) m/uL Hgb 13.9 (11.4-16.0) gm/dL Hct 40.5 (34.0-46.0) % MCV 84.9 (80.0-100.0) fL MCH 29.2 (25.0-35.0) pg MCHC 34.4 (31.0-37.0) g/dL RDW 13.2 (11.5-15.5) % Plt Count 298 (150-450) k/uL MPV 6.7 Neutrophils % 67 % Lymphocytes % 25 % Monocytes % 6 % Eosinophils % 1 % Basophils % 1 % Neutrophils # 4.9 (1.3-7.7) k/uL Lymphocytes # 1.8 (1.0-4.8) k/uL Monocytes # 0.4 (0-1.0) k/uL Eosinophils # 0.1 (0-0.7) k/uL Basophils # 0.0 (0-0.2) k/uL Sodium 137 (137-145) mmol/L Potassium 4.4 (3.5-5.1) mmol/L Chloride 101 (98-107) mmol/L Carbon Dioxide 25 (22-30) mmol/L Anion Gap 11 mmol/L BUN 12 (7-17) mg/dL Creatinine 0.61 (0.52-1.04) mg/dL Est GFR (CKD-EPI)AfAm >90 (>60 ml/min/1.73 sqM) Est GFR (CKD-EPI)NonAf >90 (>60 ml/min/1.73 sqM) Glucose 101 H (74-99) mg/dL Calcium 9.0 (8.4-10.2) mg/dL Magnesium 2.0 (1.6-2.3) mg/dL Total Bilirubin 0.3 (0.2-1.3) mg/dL AST 21 (14-36) U/L ALT 19 (4-34) U/L Alkaline Phosphatase 66 (38-126) U/L Total Protein 6.7 (6.3-8.2) g/dL Albumin 4.4 (3.5-5.0) g/dL Urine Color Yellow Urine Appearance Clear (Clear) Urine pH 6.0 (5.0-8.0) Ur Specific [place] 1.027 (1.001-1.035) Urine Protein 1+ H (Negative) Urine Glucose (UA) Negative (Negative) Urine Ketones 1+ H (Negative) Urine Blood Negative (Negative) Urine Nitrite Negative (Negative) Urine Bilirubin Negative (Negative) Urine Urobilinogen 2.0 (<2.0) mg/dL Ur Leukocyte Esterase Negative (Negative) Urine RBC 7 H (0-5) /hpf Urine WBC 2 (0-5) /hpf Ur Squamous Epith Cells 1 (0-4) /hpf Hyaline Casts 1 (0-2) /lpf Urine Mucus Many H (None) /hpf Urine HCG, Qual (Not Detectd) Urine Opiates Screen Not Detected (NotDetected) Ur Oxycodone Screen Not Detected (NotDetected) Urine Methadone Screen Not Detected (NotDetected) Ur Propoxyphene Screen Not Detected (NotDetected) Ur Barbiturates Screen Not Detected (NotDetected) U Tricyclic Antidepress Not Detected (NotDetected) Ur Phencyclidine Scrn Not Detected (NotDetected) Ur Amphetamines Screen Not Detected (NotDetected) U Methamphetamines Scrn Not Detected (NotDetected) U Benzodiazepines Scrn Detected H (NotDetected) Urine Cocaine Screen Not Detected (NotDetected) U Marijuana (THC) Screen Not Detected (NotDetected) Serum Alcohol <10 mg/dL Influenza Type A (PCR) (Not Detectd) Influenza Type B (PCR) (Not Detectd) RSV (PCR) (Not Detectd) SARS-CoV-2 (PCR) (Not Detectd) 12/29/22 12/29/22 Range/Units 17:03 17:03 WBC (3.8-10.6) k/uL RBC (3.80-5.40) m/uL Hgb (11.4-16.0) gm/dL Hct (34.0-46.0) % MCV (80.0-100.0) fL MCH (25.0-35.0) pg MCHC (31.0-37.0) g/dL RDW (11.5-15.5) % Plt Count (150-450) k/uL MPV Neutrophils % % Lymphocytes % % Monocytes % % Eosinophils % % Basophils % % Neutrophils # (1.3-7.7) k/uL Lymphocytes # (1.0-4.8) k/uL Monocytes # (0-1.0) k/uL Eosinophils # (0-0.7) k/uL Basophils # (0-0.2) k/uL Sodium (137-145) mmol/L Potassium (3.5-5.1) mmol/L Chloride (98-107) mmol/L Carbon Dioxide (22-30) mmol/L Anion Gap mmol/L BUN (7-17) mg/dL Creatinine (0.52-1.04) mg/dL Est GFR (CKD-EPI)AfAm (>60 ml/min/1.73 sqM) Est GFR (CKD-EPI)NonAf (>60 ml/min/1.73 sqM) Glucose (74-99) mg/dL Calcium (8.4-10.2) mg/dL Magnesium (1.6-2.3) mg/dL Total Bilirubin (0.2-1.3) mg/dL AST (14-36) U/L ALT (4-34) U/L Alkaline Phosphatase (38-126) U/L Total Protein (6.3-8.2) g/dL Albumin (3.5-5.0) g/dL Urine Color Urine Appearance (Clear) Urine pH (5.0-8.0) Ur Specific [place] (1.001-1.035) Urine Protein (Negative) Urine Glucose (UA) (Negative) Urine Ketones (Negative) Urine Blood (Negative) Urine Nitrite (Negative) Urine Bilirubin (Negative) Urine Urobilinogen (<2.0) mg/dL Ur Leukocyte Esterase (Negative) Urine RBC (0-5) /hpf Urine WBC (0-5) /hpf Ur Squamous Epith Cells (0-4) /hpf Hyaline Casts (0-2) /lpf Urine Mucus (None) /hpf Urine HCG, Qual Not Detected (Not Detectd) Urine Opiates Screen (NotDetected) Ur Oxycodone Screen (NotDetected) Urine Methadone Screen (NotDetected) Ur Propoxyphene Screen (NotDetected) Ur Barbiturates Screen (NotDetected) U Tricyclic Antidepress (NotDetected) Ur Phencyclidine Scrn (NotDetected) Ur Amphetamines Screen (NotDetected) U Methamphetamines Scrn (NotDetected) U Benzodiazepines Scrn (NotDetected) Urine Cocaine Screen (NotDetected) U Marijuana (THC) Screen (NotDetected) Serum Alcohol mg/dL Influenza Type A (PCR) Not Detected (Not Detectd) Influenza Type B (PCR) Not Detected (Not Detectd) RSV (PCR) Not Detected (Not Detectd) SARS-CoV-2 (PCR) Not Detected (Not Detectd) Critical Care Time Critical Care Time: Yes Total Critical Care Time: 31 Critical Care Time: The initial presentation with history physical labs x-rays discussed with paramedics upon arrival blood for reevaluation the patient discussion with multi ple physicians discuss with the family. Review of old charting was available. Discussed with paramedics upon arrival discussion with the transfer facility documentation the above( Disposition Clinical Impression: Seizure, Post-ictal state, Status epilepticus Disposition: OTHER INSTITUTION NOT DEFINED Condition: Fair Instructions (If sedation given, give patient instructions): Seizure/Epilepsy Discharge Instructions & Follow-Up Referrals: Carol Brown [Primary Care Provider] - 1-2 days Decision Date: 12/29/22 Decision Time: 21:12 - Out of Hospital Transfer - Req. Specs Out of Hospital Transfer - Requested Specifics: Other Emergency Center
[2022-12-29 21:30] VITALS: BP 110/60; PULSE 100; RESP 16
--- NOTE | 2022-12-30 02:20 | P.PN ---
Progress Note - Text Progress Note Date: 12/29/22 The patient was seen in the emergency room for admission for new onset seizure. Upon obtaining history, it was noted that the patient had not returned to her baseline over the 4 hours following her initial seizure at around 4:30 PM and had been experiencing possible ongoing seizures. While performing the history and physical, the patient was noted to again have an episode of seizure, for which the ED physician was notified. Ativan was immediately administered and the seizure aborted. Discussed with the ED physician that the patient would be better suited at a tertiary care facility for 24 hour EEG monitoring. The patient's admission was subsequently canceled and decision was made to transfer her to [facility].
[2022-12-30] MEDS ORDERED: PANTOPRAZOLE 40 MG/10 ML VIAL IV SCH (09:00)
== END 2022-12-29 21:28 | disposition other institution (70) ==
LOC: EC 16:50 → UNDOADMIN 19:53 → 4SSUR 19:53 → EC 21:28
DX: G40.901 Epilepsy, unspecified, not intractable, with status epilepticus (principal); Z20.822 Contact with and (suspected) exposure to COVID-19
CPT/HCPCS: 36415; 93005; 80053; 83735; 85025; 81001; 81025; 80306; 80320; 87636; 71045; 70450; 99291; 96374; 96361 ×2; 96372 ×2; J2060; J2405; J1953

== ENCOUNTER 2023-02-06 14:02 | Emergency (ER) | payer BC, OTHER ==
[2023-02-06 14:13] VITALS: TEMP 98.4
[2023-02-06] MEDS ORDERED: levETIRAcetam IV 1,000 MG in SALINE 1 100ML.BAG IVPB STA (14:22)
[2023-02-06] MEDS ORDERED: SODIUM CHLORIDE 0.9% 1,000 ML IV STA (14:22)
[2023-02-06] MEDS ORDERED: SODIUM CHLORIDE 0.9% 500 ML 500 ML IV STA (14:22)
--- NOTE | 2023-02-06 14:32 | ED ---
Seizure HPI - General Chief Complaint: Seizure Stated Complaint: Seizures Time Seen by Provider: 02/06/23 14:17 Source: patient Mode of arrival: EMS - History of Present Illness Initial Comments: This 37-year-old female presents via EMS from cardiology center. She apparently was undergoing a stress test when she reportedly had 2 seizures. Case is discussed with her provider who relays that she had 135 seconds and 1/ seizure. They relate that this was generalized in nature. She did not sustain any injuries but did seem somewhat postictal afterwards. She apparently was being seen by cardiology for recurrent syncopal episodes. She had previously received an EEG which was negative for any epileptiform type of activity. They were ruling out a cardiogenic cause of her symptomatology. She does present via EMS and apparently received 5 mg of Versed prior to arrival and now is quite sleepy and does not answer any questions. History is limited as patient is still very sleepy. No family members are present. Old records are reviewed and it does appear that she has been admitted a couple times in the past several months. It does appear as though staff was suspicious of pseudoseizures and also had a psychiatric consult in this regard. She is not currently on any antiepileptic medications. She does have a psychiatric history. No purported drug use per old records. No other identifiable complaints or modifying factors. - Related Data Home Medications Medication Instructions Recorded Confirmed lamoTRIgine 200 mg PO HS 10/26/22 02/06/23 lamoTRIgine [LaMICtal] 25 mg PO HS 10/26/22 02/06/23 FLUoxetine HCL [PROzac] 20 mg PO DAILY 12/29/22 02/06/23 FLUoxetine HCL [PROzac] 40 mg PO DAILY 02/06/23 02/06/23 Rizatriptan Odt [Maxalt REGULATORY COORDINATOR] 10 mg PO DIRECTED PRN 02/06/23 02/06/23 Vitamin D3 (50,000 Units) 1,250 mcg PO MO 02/06/23 02/06/23 Allergies Allergy/AdvReac Type Severity Reaction Status Date / Time No Known Allergies Allergy Verified 02/06/23 15:46 Review of Systems ROS Statement: Those systems with pertinent positive or pertinent negative responses have been documented in the HPI. ROS Other: All systems not noted in ROS Statement are negative. Past Medical History Past Medical History: No Reported History, Seizure Disorder History of Any Multi-Drug Resistant Organisms: None Reported Past Surgical History: Section Past Anesthesia/Blood Transfusion Reactions: No Reported Reaction Past Psychological History: No Psychological Hx Reported Smoking Status: Unknown if ever smoked Past Alcohol Use History: Rare Past Drug Use History: None Reported - Past Family History Mother Family Medical History: No Reported History General Exam - General Exam Comments Initial Comments: GENERAL: The patient is well nourished and well hydrated. VITAL SIGNS: Heart rate, blood pressure, respiratory rate reviewed as recorded in nurse's notes. EYES: Pupils are round and reactive. Extraocular movements are intact. No conjunctival / lid redness or swelling. ENT: No external evidence of injury, swelling, or ecchymosis. Airway is patent. Throat is clear. NECK: Nontender. No swelling or evidence of injury. No subcutaneous emphysema. Trachea is midline. No thyroid mass. HEART: Regular rate and rhythm. Good peripheral pulses. LUNGS/CHEST: Breath sounds clear and equal bilaterally. No rales, rhonchi, or wheezes. No ecchymosis, subcutaneous emphysema, or tenderness. ABDOMEN: Abdomen soft without tenderness. No palpable masses or organomegaly. No peritoneal signs. No abdominal wall swelling or ecchymosis. EXTREMITIES: No extremity tenderness. Normal muscle tone and function. No thoracolumbar tenderness. NEUROLOGIC: Patient does receive Versed 5 mg and currently is very sleepy and not compliant with examination. SKIN: No abrasions or ecchymosis is noted. No induration or masses noted. PSYCHIATRIC: Patient is currently very sleepy after receiving Versed. Course Vital Signs 02/06/23 02/06/23 14:04 15:46 Temperature 98.4 F Pulse Rate 78 Respiratory 16 Rate Blood Pressure 115/70 97/71 O2 Sat by Pulse 95 Oximetry Medical Decision Making - Medical Decision Making The patient was seen and examined. EKG is completed and this does show normal sinus rhythm at a rate of 85. There is no acute ST or T wave changes noted per my interpretation. The CO intervals 126, QRS duration is 80, and QTC intervals 437. Was pt. sent in by a medical professional or institution (, KINA, IT SECURITY SPECIALIST, urgent care, hospital, or intermediate...) When possible be specific @ -The patient was sent in by the cardiology nurse practitioner while patient was apparently having a stress test. Did you speak to anyone other than the patient for history (EMS, parent, family, police, friend...)? What history was obtained from this source @ -Is is discussed with the cardiology nurse practitioner prior to patient arrival. Case is discussed with the who later does present. He relates that patient just had a video monitoring continuous EEG at [facility] and no epileptiform activity was identified and she was diagnosed with pseudoseizures. Did you review nursing and triage notes (agree or disagree)? Why? @ -[I reviewed and agree with nursing and triage notes] Were old charts reviewed (outside hosp., previous admission, EMS record, old EKG, old radiological studies, urgent care reports/EKG's, intermediate records)? Report findings @ -Charts were reviewed and it appears as though she was hospitalized several months ago with seizure-like activity and pseudoseizure was highly recommended. She had a psychiatric consult at that time. Differential Diagnosis (chest pain, altered mental status, abdominal pain women, abdominal pain men, vaginal bleeding, weakness, fever, dyspnea, syncope, headache, dizziness, GI bleed, back pain, seizure, CVA, palpatations, mental health, musculoskeletal)? @ -Seizure, pseudoseizure, psychiatric illness EKG interpreted by me (3pts min.). @ -[As above] X-rays interpreted by me (1pt min.). @ -[None done] CT interpreted by me (1pt min.). @ -CT is interpreted by radiologist and does not show any acute process. U/S interpreted by me (1pt. min.). @ -[None done] What testing was considered but not performed or refused? (CT, X-rays, U/S, labs)? Why? @ -[None] What meds were considered but not given or refused? Why? @ -[None] Did you discuss the management of the patient with other professionals (professionals i.e. , PA, IT SECURITY SPECIALIST, lab, RT, psych nurse, perinatal social worker, apartment rental agent, teacher, custody officer, egg caser)? Give summary @ -[No] Was smoking cessation discussed for >3mins.? @ -[No] Was critical care preformed (if so, how long)? @ -[No] Were there social determinants of health that impacted care today? How? (Homeles sness, low income, unemployed, alcoholism, drug addiction, transportation, low edu. Level, literacy, decrease access to med. care, fci, rehab)? @ -There is felt as though patient's psychiatric illness likely is a social determined that impacted her healthcare. Was there de-escalation of care discussed even if they declined (Discuss DNR or withdrawal of care, Hospice)? DNR status @ -[No] What co-morbidities impacted this encounter? (DM, HTN, Smoking, COPD, CAD, Cancer, CVA, ARF, Chemo, Hep., AIDS, mental health diagnosis, sleep apnea, morbid obesity)? @ -Pseudoseizures, anxiety, depression Was patient admitted / discharged? Hospital course, mention meds given and route, prescriptions, significant lab abnormalities, going to OR and other pertinent info. @ -The patient was seen and examined. Initial history of definitive pseudoseizures not known and patient does receive Keppra intravenously. She initially is very sleepy after receiving Versed 5 mg by EMS. On recheck, she is conversive and playing on her phone and in no distress whatsoever. Laboratory is unremarkable. Computed tomography scan is unremarkable. The does present and gives additional history of definite pseudoseizure per recent testing. It is not felt as though she would require admission to the hospital not she stable for discharge and to follow up with her doctors. She also is recommended to follow-up with cardiology for additional testing his plan. Undiagnosed new problem with uncertain prognosis? @ -[No] Drug Therapy requiring intensive monitoring for toxicity (Heparin, Nitro, Insulin, Cardizem)? @ -[No] Were any procedures done? @ -[No] Diagnosis/symptom? @ -Pseudoseizure Acute, or Chronic, or Acute on Chronic? @ -Chronic Uncomplicated (without systemic symptoms) or Complicated (systemic symptoms)? @ -Uncomplicated Side effects of treatment? @ -[No] Exacerbation, Progression, or Severe Exacerbation? @ -[No] Poses a threat to life or bodily function? How? (Chest pain, USA, SD, pneumonia, PE, COPD, DKA, ARF, appy, cholecystitis, CVA, Diverticulitis, Homicidal, Suicidal, threat to staff... and all critical care pts) @ -[No] - Lab Data Result diagrams: 02/06/23 14:27 02/06/23 14:27 Lab Results 02/06/23 02/06/23 02/06/23 Range/Units 14:23 14:27 14:27 WBC 6.1 (3.8-10.6) k/uL RBC 4.06 (3.80-5.40) m/uL Hgb 12.0 (11.4-16.0) gm/dL Hct 36.1 (34.0-46.0) % MCV 89.0 (80.0-100.0) fL MCH 29.6 (25.0-35.0) pg MCHC 33.3 (31.0-37.0) g/dL RDW 12.9 (11.5-15.5) % Plt Count 311 (150-450) k/uL MPV 7.4 Neutrophils % 74 % Lymphocytes % 20 % Monocytes % 4 % Eosinophils % 1 % Basophils % 0 % Neutrophils # 4.5 (1.3-7.7) k/uL Lymphocytes # 1.2 (1.0-4.8) k/uL Monocytes # 0.3 (0-1.0) k/uL Eosinophils # 0.1 (0-0.7) k/uL Basophils # 0.0 (0-0.2) k/uL Sodium 136 L (137-145) mmol/L Potassium 3.9 (3.5-5.1) mmol/L Chloride 101 (98-107) mmol/L Carbon Dioxide 24 (22-30) mmol/L Anion Gap 11 mmol/L BUN 8 (7-17) mg/dL Creatinine 0.64 (0.52-1.04) mg/dL Est GFR (CKD-EPI)AfAm >90 (>60 ml/min/1.73 sqM) Est GFR (CKD-EPI)NonAf >90 (>60 ml/min/1.73 sqM) Glucose 100 H (74-99) mg/dL Calcium 8.3 L (8.4-10.2) mg/dL Magnesium 1.9 (1.6-2.3) mg/dL Total Bilirubin 0.3 (0.2-1.3) mg/dL AST 19 (14-36) U/L ALT 17 (4-34) U/L Alkaline Phosphatase 55 (38-126) U/L Total Protein 6.0 L (6.3-8.2) g/dL Albumin 3.9 (3.5-5.0) g/dL HCG, Qual Not Detected Urine Color Light Yellow Urine Appearance Clear (Clear) Urine pH 6.5 (5.0-8.0) Ur Specific [place] 1.004 (1.001-1.035) Urine Protein Negative (Negative) Urine Glucose (UA) Negative (Negative) Urine Ketones Negative (Negative) Urine Blood Large H (Negative) Urine Nitrite Negative (Negative) Urine Bilirubin Negative (Negative) Urine Urobilinogen <2.0 (<2.0) mg/dL Ur Leukocyte Esterase Negative (Negative) Urine RBC 5 (0-5) /hpf Urine WBC <1 (0-5) /hpf Ur Squamous Epith Cells <1 (0-4) /hpf Urine Mucus Rare H (None) /hpf Serum Alcohol <10 mg/dL Disposition Clinical Impression: Seizure-like activity, Pseudoseizures Disposition: HOME SELF-CARE Condition: Good Instructions (If sedation given, give patient instructions): Nonepileptic Seizures (ED) Is patient prescribed a controlled substance at d/c from ED?: No Referrals: None,Stated [Primary Care Provider] - 1-2 days Time of Disposition: 15:54 Decision Date: 02/06/23 Decision Time: 15:54
[2023-02-06 14:46] LABS: Basophils % (A) 0 %; Eosinophils # (A) 0.1 k/uL (0-0.7); Eosinophils % (A) 1 %; HCT 36.1 % (34.0-46.0); Lymphocytes # (A) 1.2 k/uL (1.0-4.8); Lymphocytes % (A) 20 %; MCH 29.6 pg (25.0-35.0); MCHC 33.3 g/dL (31.0-37.0); Mean Platelet Volume 7.4; Monocytes # (A) 0.3 k/uL (0-1.0); Monocytes % (A) 4 %; Neutrophils # (A) 4.5 k/uL (1.3-7.7); Neutrophils % (A) 74 %; Platelet Count 311 k/uL (150-450); RBC 4.06 m/uL (3.80-5.40); RDW 12.9 % (11.5-15.5); WBC 6.1 k/uL (3.8-10.6)
[2023-02-06 15:01] LABS: ALT 17 U/L (4-34); AST 19 U/L (14-36); African American GFR (CKD) >90 (>60 ml/min/1.73 sqM); Albumin 3.9 g/dL (3.5-5.0); Alcohol <10 mg/dL; Alkaline Phosphatase 55 U/L (38-126); Anion Gap 11 mmol/L; Blood Urea Nitrogen 8 mg/dL (7-17); Calcium 8.3 mg/dL (8.4-10.2); Carbon Dioxide 24 mmol/L (22-30); Chloride 101 mmol/L (98-107); Glucose 100 mg/dL (74-99); Magnesium 1.9 mg/dL (1.6-2.3); Non-African American GFR(CKD) >90 (>60 ml/min/1.73 sqM); Potassium 3.9 mmol/L (3.5-5.1); Sodium 136 mmol/L (137-145); Total Bilirubin 0.3 mg/dL (0.2-1.3)
--- NOTE | 2023-02-06 15:23 | CT ---
EXAMINATION TYPE: CT brain wo con DATE OF EXAM: 02/06/2023 COMPARISON: 12/29/2022. HISTORY: Seizure Activity. CT DLP: 1102.4 mGycm. Automated Exposure Control for Dose Reduction was Utilized. TECHNIQUE: CT scan of the head is performed without contrast. FINDINGS: There is no acute intracranial hemorrhage, mass effect, or midline shift identified. The ventricles and sulci are within normal limits in size. The globes are intact and the visualized sin uses are clear. IMPRESSION: No acute intracranial hemorrhage, mass effect, or midline shift is seen. No significant change from the previous examination.
[2023-02-06 15:35] LABS: HCG,Qualitative Serum Not Detected
[2023-02-06 15:48] VITALS: BP 97/71; PULSE 78; RESP 16
[2023-02-06 15:51] LABS: Appearance,Urine Clear (Clear); Bilirubin,Urine Negative (Negative); Blood,Urine Large (Negative); Color,Urine Light Yellow; Glucose,Urine (UA) Negative (Negative); Ketones,Urine Negative (Negative); Leukocyte Esterase,Urine Negative (Negative); Mucus,Urine Rare /hpf; Nitrite,Urine Negative (Negative); PH, Urine 6.5 (5.0-8.0); Protein,Urine Negative (Negative); RBC,Urine 5 /hpf (0-5); Specific Gravity,Urine 1.004 (1.001-1.035); Squamous Epithelial Cell,Urine <1 /hpf (0-4); Urobilinogen,Urine <2.0 mg/dL (<2.0); WBC,Urine <1 /hpf (0-5)
[2023-02-06 15:58] LABS: Amphetamine Screen,Urine Not Detected (NotDetected); Barbiturate Screen,Urine Not Detected (NotDetected); Benzodiazepines Screen,Urine Not Detected (NotDetected); Cocaine Screen,Urine Not Detected (NotDetected); Methadone Screen, Urine Not Detected (NotDetected); Opiate Screen,Urine Not Detected (NotDetected); Oxycodone Screen, Urine Not Detected (NotDetected); Phencyclidine Screen,Urine Not Detected (NotDetected); Tricyclic Antidepressant,Urine Not Detected (NotDetected); Urn Cannabinoid Scrn Not Detected (NotDetected)
== END 2023-02-06 16:05 | disposition home or self-care (01) ==
LOC: EC 14:02
DX: G40.909 Epilepsy, unspecified, not intractable, without status epilepticus (principal); Z79.899 Other long term (current) drug therapy
CPT/HCPCS: 36415; 93005; 80053; 83735; 85025; 81001; 84703; 80306; 80320; 70450; 99285; 96365; J1953

== ENCOUNTER → 2023-03-02 | Outpatient (CLI) | payer BC, OTHER ==
--- NOTE | 2023-03-02 09:33 | MR ---
EXAMINATION TYPE: MR thoracic spine wo/w con DATE OF EXAM: 03/02/2023 COMPARISON: NONE HISTORY: Mid back pain, Demyelinating disease TECHNIQUE: Multiplanar, multisequence imaging of thoracic spine is performed without and with IV cont rast, patient injected with 6.5 cc of gadolinium. FINDINGS: Spinal cord shows normal course, caliber, and signal as it courses the thoracic spine. Presley tebral body heights and alignment are satisfactory. Disc space heights are maintained. Bone marrow s ignal intensity is preserved. No abnormal postcontrast enhancement is seen. No large disc herniations identified. Review of the axial images shows no significant spinal canal stenosis or neural foraminal narrowing a t any thoracic level. Visualized thorax and upper abdomen are grossly unremarkable. IMPRESSION: No MRI evidence for demyelinating disease involvement in the thoracic spinal cord. Unrem arkable study.
== END | disposition home or self-care (01) ==
LOC: RADMRIMAIN 08:23
DX: G37.9 Demyelinating disease of central nervous system, unspecified (principal); M54.6 Pain in thoracic spine
CPT/HCPCS: 72157; A9585